=== PATIENT | female | born 1985 | race African-American/Black ===

== ENCOUNTER 2016-12-24 14:38 | Emergency (ER) | payer MEDICAID, OTHER ==
[2016-12-24 14:46] VITALS: BP 135/75; RESP 18; TEMP 98.4
[2016-12-24] MEDS ORDERED: IPRATROPIUM-ALBUTEROL 3 ML NEB INHALATION STA (14:53)
--- NOTE | 2016-12-24 15:11 | ED ---
URI HPI - General Chief Complaint: Upper Respiratory Infection Stated Complaint: cough/congestion Time Seen by Provider: 12/24/16 14:47 Source: patient Mode of arrival: ambulatory Limitations: no limitations - History of Present Illness Initial Comments: 31-year-old female patient presents to emergency department today for evaluation of cough and nasal congestion. Patient states that she developed sore throat with nasal congestion approximately 4 days ago. She states she thought it was her ALLERGIES so she did take some ALLERGY medication which did not improve symptoms. Patient states that now she has developed a cough. She states occasionally she does have sputum production however she is unsure what color it is. She states that her chest feels tight and like she is having difficulty breathing. She states she has noted some wheezing. Patient states she hasn't checked her temperature however has felt chilled and feverish. She denies any rash. Patient denies any recent chest pain, abdominal pain, nausea, vomiting, diarrhea, constipation, back pain, numbness, tingling, headache, visual changes, hematuria, dysuria, urinary frequency, urinary urgency, or any other complaints. She states she is an occasional smoker. - Related Data Home Medications Medication Instructions Recorded Confirmed Ibuprofen [Motrin] 600 mg PO Q8HR PRN 12/14/14 12/14/14 Previous Rx's Medication Instructions Recorded Azithromycin [Zithromax Z-pack] 0 mg PO DIRECTED #6 tab 12/14/14 Albuterol Sulfate [Proair Hfa] 1 - 2 puff INHALATION Q6HR PRN #1 12/24/16 inhaler guaiFENesin-DM 600/30MG [Mucinex 1 each PO Q12HR #10 tab.er.12h 12/24/16 Dm] Allergies Allergy/AdvReac Type Severity Reaction Status Date / Time latex Allergy Rash/Hives Verified 12/24/16 14:44 Review of Systems ROS Statement: Those systems with pertinent positive or pertinent negative responses have been documented in the HPI. ROS Other: All systems not noted in ROS Statement are negative. Past Medical History Additional Past Medical History / Comment(s): arms broken, hypoglycemic, anemia History of Any Multi-Drug Resistant Organisms: None Reported Past Surgical History: Joint Replacement, Orthopedic Surgery Additional Past Surgical History / Comment(s): arms, legs Past Psychological History: No Psychological Hx Reported Smoking Status: Current some day smoker Past Alcohol Use History: Occasional Past Drug Use History: None Reported General Exam Limitations: no limitations General appearance: alert, in no apparent distress, other (Well-developed, well- nourished adult female patient in no acute distress. Vital signs upon presentation temperature 98.4F, pulse 85, respirations 18, blood pressure 135/ 75, pulse ox 100% on room air.) ENT exam: Present: normal exam, mucous membranes moist, TM's normal bilaterally. Absent: normal oropharynx (Oropharyngeal erythema, mild tonsillar hypertrophy. No exudates.) Neck exam: Present: normal inspection. Absent: tenderness, meningismus, lymphadenopathy Respiratory exam: Present: normal lung sounds bilaterally. Absent: respiratory distress, wheezes, rales, rhonchi, stridor Cardiovascular Exam: Present: regular rate, normal rhythm, normal heart sounds. Absent: systolic murmur, diastolic murmur, rubs, gallop, clicks Neurological exam: Present: alert, oriented X3, CN II-XII intact Psychiatric exam: Present: normal affect, normal mood Skin exam: Present: warm, dry, intact, normal color. Absent: rash Course Vital Signs 12/24/16 12/24/16 12/24/16 14:44 15:07 15:22 Temperature 98.4 F Pulse Rate 85 82 84 Respiratory 18 Rate Blood Pressure 135/75 O2 Sat by Pulse 100 Oximetry Medical Decision Making - Medical Decision Making 31-year-old female patient presented for evaluation of cough, congestion, and nasal drainage. Chest x-ray was negative for any acute process. Patient did have improvement of symptoms after breathing treatment. Patient symptoms are consistent with viral upper respiratory infection. Patient be discharged home with a prescription for Mucinex D and pro-air inhaler. She is instructed to follow-up with her primary care physician for recheck in 1-2 days. She is instructed to return here immediately for any new, worsening, or concerning symptoms. Patient verbalizes understanding and agrees with this plan. - Lab Data Lab Results 12/24/16 Range/Units 14:58 Influenza Type A RNA Not Detected (Not Detectd) Influenza Type B (PCR) Not Detected (Not Detectd) - Radiology Data Radiology results: report reviewed, image reviewed Two-view x-ray of the chest was obtained and showed the lungs are clear with no pneumothorax, pleural effusion, or focal pneumonia. Impression by Dr. Sanchez shows no acute process. Disposition Clinical Impression: Upper respiratory infection Disposition: HOME SELF-CARE Condition: Good Instructions: Upper Respiratory Infection (ED) Additional Instructions: Take medications as directed. Increase fluids. Rest. Follow up with your primary care physician for recheck in 1-2 days. Return here immediately for any new, worsening, or concerning symptoms. Prescriptions: Albuterol Sulfate [Proair Hfa] 1 - 2 puff INHALATION Q6HR PRN #1 inhaler PRN Reason: Shortness of breath/wheezing guaiFENesin-DM 600/30MG [Mucinex Dm] 1 each PO Q12HR #10 tab.er.12h Referrals: None,Stated [Primary Care Provider] - 1-2 days Time of Disposition: 15:45
--- NOTE | 2016-12-24 15:40 | XR ---
EXAMINATION TYPE: XR chest 2V DATE OF EXAM: 12/24/2016 COMPARISON: 12/14/2016 TECHNIQUE: PA and lateral views submitted. HISTORY: Cough and congestion FINDINGS: The lungs are clear and there is no pneumothorax, pleural effusion, or focal pneumonia. IMPRESSION: 1. No acute process.
[2016-12-24 16:23] VITALS: PULSE 85
== END 2016-12-24 16:00 | disposition home or self-care (01) ==
LOC: EC 14:38
DX: J06.9 Acute upper respiratory infection, unspecified (principal); F17.200 Nicotine dependence, unspecified, uncomplicated; Z91.040 Latex allergy status
CPT/HCPCS: 71020; 87502; 94640; 99284

== ENCOUNTER 2017-08-18 11:40 | Emergency (ER) | payer MEDICAID ==
[2017-08-18 12:07] VITALS: PULSE 84; RESP 18; TEMP 97.8
--- NOTE | 2017-08-18 13:00 | XR ---
EXAMINATION TYPE: XR shoulder complete LT DATE OF EXAM: 08/18/2017 COMPARISON: NONE HISTORY: 31 year-old female left shoulder pain for one week TECHNIQUE: 3 views FINDINGS: AC joint appears congruent and intact. Subacromial space is preserved. No tendinous or bursal calcifi cations. Small delineation to the greater tuberosity. No acute fracture, subluxation, or dislocation. Visualized left hemithorax is clear. IMPRESSION: No acute osseous abnormality seen.
--- NOTE | 2017-08-18 13:16 | ED ---
General Adult HPI - General Chief complaint: Extremity Injury, Upper Stated complaint: Shoulder pain Time Seen by Provider: 08/18/17 12:13 Source: patient, RN notes reviewed Mode of arrival: ambulatory Limitations: no limitations - History of Present Illness Initial comments: 31-year-old female presents to the emergency department for a chief complaint of left shoulder pain. Patient states this has been going on for about a week. 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 Patient denies remembering any known injury. Patient states she has mild tingling in the left hand. Patient states she has tried Motrin and Tylenol without much relief. Patient states she has not followed up with primary care for this. Patient denies any pain in the neck or back. Patient states she does have some pain above the left shoulder in the area of the trapezius. Patient has no other complaints at this time including shortness of breath, chest pain, abdominal pain, nausea or vomiting, headache, or visual changes. - Related Data Home Medications Medication Instructions Recorded Confirmed Acetaminophen Tab [Tylenol Tab] 1,000 mg PO Q6HR PRN 08/18/17 08/18/17 Previous Rx's Medication Instructions Recorded Cyclobenzaprine [Flexeril] 10 mg PO TID #9 tab 08/18/17 Allergies Allergy/AdvReac Type Severity Reaction Status Date / Time latex Allergy Rash/Hives Verified 08/18/17 12:12 Review of Systems ROS Statement: Those systems with pertinent positive or pertinent negative responses have been documented in the HPI. ROS Other: All systems not noted in ROS Statement are negative. Past Medical History Additional Past Medical History / Comment(s): arms broken, hypoglycemic, anemia leg fracture History of Any Multi-Drug Resistant Organisms: None Reported Past Surgical History: Orthopedic Surgery Additional Past Surgical History / Comment(s): arms, legs Past Psychological History: No Psychological Hx Reported Smoking Status: Current some day smoker Past Alcohol Use History: Occasional Past Drug Use History: None Reported General Exam Limitations: no limitations General appearance: alert, in no apparent distress Neck exam: Present: normal inspection, full ROM. Absent: tenderness, meningismus, lymphadenopathy Respiratory exam: Present: normal lung sounds bilaterally. Absent: respiratory distress, wheezes, rales, rhonchi, stridor Cardiovascular Exam: Present: regular rate, normal rhythm, normal heart sounds. Absent: systolic murmur, diastolic murmur, rubs, gallop, clicks Extremities exam: Present: tenderness (Mild tenderness to the trapezius above the left shoulder.), normal capillary refill (Refill less than 2 seconds and radial pulse 2+ in upper extremities bilaterally.), other (Sensation intact in the left upper extremity.). Absent: full ROM (Patient has about 90 of flexion and abduction. About 30 extension in the left shoulder. Facility Supervisor strength 5 out of 5 in upper extremities bilaterally. ), joint swelling (No swelling or ecchymosis noted of the left shoulder.) Course Vital Signs 08/18/17 12:04 Temperature 97.8 F Pulse Rate 84 Respiratory 18 Rate Blood Pressure 145/80 O2 Sat by Pulse 100 Oximetry Medical Decision Making - Medical Decision Making 31-year-old female presents the emergency department for a chief complaint of left shoulder pain times one week. 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 Patient states she has pain above the left shoulder at the area of trapezius. Patient denies pain in the neck or back. Patient denies any headaches. On exam neurovascular intact in the left upper extremity. Patient has about 90 flexion and abduction and about 30 extension. Patient also has some tenderness above the left shoulder at the area of the trapezius. X-ray demonstrates no acute fractures or dislocations of the shoulder. Patient will be given a prescription for Flexeril. She will follow up outpatient with either orthopedics or primary care. She was given a sling for comfort and educated on doing range of motion exercises every couple hours while using the sling in the left shoulder. Patient is to return if she has any worsening symptoms or numbness in the left hand. Otherwise she will follow-up. Disposition Clinical Impression: Shoulder pain, left Disposition: HOME SELF-CARE Condition: Good Instructions: Shoulder Pain (ED) Additional Instructions: Please take Motrin and Tylenol for pain. Please take muscle relaxer as directed. Use sling as needed and remember to do range of motion exercises in the left shoulder as we discussed. Return to the emergency department if you have any worsening symptoms. Otherwise follow-up with orthopedics or primary care in 1-2 days. Prescriptions: Cyclobenzaprine [Flexeril] 10 mg PO TID #9 tab Is patient prescribed a controlled substance at d/c from ED?: No Referrals: Corey Jacobson DO [STAFF PHYSICIAN] - 1-2 days Osman Goncalves DO [Doctor of Osteopathic Medicine] - 1-2 days Time of Disposition: 13:14
[2017-08-18 13:22] VITALS: BP 124/76
== END 2017-08-18 13:22 | disposition home or self-care (01) ==
LOC: EC 11:40
DX: M25.512 Pain in left shoulder (principal); R20.2 Paresthesia of skin; F17.200 Nicotine dependence, unspecified, uncomplicated; Z87.828 Personal history of other (healed) physical injury and trauma; Z91.040 Latex allergy status
CPT/HCPCS: 99283

== ENCOUNTER 2017-11-09 16:35 | Emergency (ER) | payer MEDICAID, OTHER ==
[2017-11-09 17:00] VITALS: BP 124/76; PULSE 80; RESP 16; TEMP 98.2
[2017-11-09] MEDS ORDERED: PROPARACAINE 0.5% OPHTH DROPS 15 ML BTL LEFT EYE STA (17:17)
--- NOTE | 2017-11-09 17:34 | ED ---
ENT HPI - General Chief complaint: ENT Stated complaint: [facility] - CHEMICAL EXPOSURE Time Seen by Provider: 11/09/17 17:01 Source: patient, RN notes reviewed Mode of arrival: ambulatory Limitations: no limitations - History of Present Illness Initial comments: This a 32-year-old female with past medical history of anemia presents today for chief complaint of chemical in left eye. Pt states that around 4:30 she was at work here at [employer] using a cleaning mixture she is not sure of the name. When she was cleaning a tray, she swiped across the cup simon to clean it when the chemical she was using splashed into her left eye. She denies seeing any blood in the tray. Pt admitted to burning in the left eye. Pt called collin, who irrigated her eye with 1 L of normal saline and sent her to the ER for further evaluation. Upon arrival pt pH was tested using pH strips which was ~7.3 OD, OS, OU. Pt VA was obtained revealing 20/25 OD amd 20/30 OS. Pt admitted to some watering and blurring of the left eye. Denied photophobia, conjunctival injection or loss of vision. Pt VS stable upon arrival. Patient denies any recent fever, chills, shortness of breath, chest pain, back pain, abdominal pain, nausea or vomiting, numbness or tingling, dysuria or hematuria, constipation or diarrhea, headaches, or any other complaints. - Related Data Home Medications Medication Instructions Recorded Confirmed Acetaminophen Tab [Tylenol Tab] 1,000 mg PO Q6HR PRN 08/18/17 08/18/17 Previous Rx's Medication Instructions Recorded Cyclobenzaprine [Flexeril] 10 mg PO TID #9 tab 08/18/17 Allergies Allergy/AdvReac Type Severity Reaction Status Date / Time latex Allergy Rash/Hives Verified 11/09/17 17:00 Review of Systems ROS Statement: Those systems with pertinent positive or pertinent negative responses have been documented in the HPI. ROS Other: All systems not noted in ROS Statement are negative. Constitutional: Denies: fever, chills Eyes: Reports: eye pain, vision change ENT: Denies: ear pain Respiratory: Denies: as per HPI, cough, dyspnea Cardiovascular: Denies: chest pain, palpitations Endocrine: Denies: fatigue Gastrointestinal: Denies: abdominal pain, nausea, vomiting Genitourinary: Denies: urgency, dysuria, frequency, hematuria, discharge Musculoskeletal: Denies: as per HPI Skin: Denies: rash, lesions, change in color Neurological: Denies: headache, weakness, numbness, paresthesias, confusion Past Medical History Past Medical History: No Reported History Additional Past Medical History / Comment(s): arms broken, hypoglycemic, anemia leg fracture History of Any Multi-Drug Resistant Organisms: None Reported Past Surgical History: Orthopedic Surgery Additional Past Surgical History / Comment(s): arms, legs Past Psychological History: No Psychological Hx Reported Smoking Status: Current some day smoker Past Alcohol Use History: Occasional Past Drug Use History: None Reported General Exam - General Exam Comments Initial Comments: General: The patient is awake and alert, in no distress, and does not appear acutely ill. Eye: No lesions, rashes or pack surrounding eye or eyelids. +3mm pupils are equal, round and reactive to light, extra-ocular movements are intact. No APD. No opacities of cornea seen on slit lamp. No nystagmus. There is normal conjunctiva bilaterally. No signs of icterus. pH 7.3 eyes b/l. IOP 12 OU. Fluorescence exam revealed no areas of uptake, no corneal defect or opacities noted. Pt VA 20/30OS 20/25 OD. Ears, nose, mouth and throat: There are moist mucous membranes and no oral lesions. Neck: The neck is supple, there is no tenderness or JVD. Cardiovascular: There is a regular rate and rhythm. No murmur, rub or gallop is appreciated. Musculoskeletal: Normal ROM, no tenderness. Strength 5/5. Sensation intact. Pulses equal bilaterally 2+. Neurological: A&O x 3. CN II-XII intact, There are no obvious motor or sensory deficits. Coordination appears grossly intact. Speech is normal. Skin: Skin is warm and dry and no rashes or lesions are noted. Psychiatric: Cooperative, appropriate mood & affect, normal judgment. Limitations: no limitations Course Vital Signs 11/09/17 16:57 Temperature 98.2 F Pulse Rate 80 Respiratory 16 Rate Blood Pressure 124/76 O2 Sat by Pulse 99 Oximetry Medical Decision Making - Medical Decision Making Eye exam unremarkable, no evidence of chemical burn, pH of eyes b/l equal at 7.3. Pt eye was irrigated with 1L of sterile water after administration of proparacaine. At this time we have low suspicion of chemical burn to left eye. Pt was told to f/u in 1-2 days with ophthalmology for additional evaluation. Pt agreed. Pt was discharged in stable condition after case was discussed with Dr. Rosario in detail. Disposition Clinical Impression: Chemical exposure of eye Narrative: left eye Disposition: HOME SELF-CARE Condition: Good Instructions: Chemical Eye Pack (ED) Additional Instructions: Please use over the counter eye lubricant as discussed. Please follow-up with family doctor or ophthalmology in the next 2 days of symptoms have not improved. Please return to emergency room if the symptoms increase or worsen or for any other concerns. Is patient prescribed a controlled substance at d/c from ED?: No Referrals: None,Stated [Primary Care Provider] - 1-2 days Jatin Ospina MD [STAFF PHYSICIAN] - 1-2 days Time of Disposition: 17:34
== END 2017-11-09 18:20 | disposition home or self-care (01) ==
LOC: EC 16:35
DX: Z77.098 Contact with and (suspected) exposure to other hazardous, chiefly nonmedicinal, chemicals (principal); F17.200 Nicotine dependence, unspecified, uncomplicated; Z91.040 Latex allergy status
CPT/HCPCS: 99283

== ENCOUNTER 2018-03-01 13:59 | Emergency (ER) | payer MEDICAID, OTHER ==
[2018-03-01 14:06] VITALS: PULSE 85; RESP 18; TEMP 97.7
[2018-03-01] MEDS ORDERED: SODIUM CHLORIDE 0.9% 500 ML 500 ML IV STA (14:49)
[2018-03-01] MEDS ORDERED: SODIUM CHLORIDE 0.9% 1,000 ML IV STA (14:49)
--- NOTE | 2018-03-01 14:52 | ED ---
General Adult HPI - General Chief complaint: Chest Pain Stated complaint: chest pain Time Seen by Provider: 03/01/18 14:30 Source: patient, RN notes reviewed, old records reviewed Mode of arrival: ambulatory Limitations: no limitations - History of Present Illness Initial comments: Patient is a 32-year-old -Citizen Of The [place] female who presents emergency department today with chief complaint of left-sided chest pain. She reports that radiates from her sternum, around her breast and towards her back. Patient states the symptoms started on Thursday. She reports it seems to be worse with certain movements and when she takes a deep breath. Patient reports that she's had no significant coughing, fevers chills or wheezing. She denies any acid reflux flex-like pain and denies abdominal pain. She does report there is a slight chance of . 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 She reports that she didn't know heavy lifting or any other physical activity that seems out of the normal for her for her to have this pain. She is an occasional smoker. - Related Data Home Medications Medication Instructions Recorded Confirmed Naproxen Sodium [Aleve] 220 mg PO DAILY PRN 03/01/18 03/01/18 Previous Rx's Medication Instructions Recorded Ibuprofen 600 mg PO TID #20 tablet 03/01/18 methylPREDNISolone Dose Pack 4 mg PO DIRECTED #21 package 03/01/18 [Medrol Dose Pack] Allergies Allergy/AdvReac Type Severity Reaction Status Date / Time latex Allergy Rash/Hives Verified 03/01/18 14:15 Review of Systems ROS Statement: Those systems with pertinent positive or pertinent negative responses have been documented in the HPI. ROS Other: All systems not noted in ROS Statement are negative. Past Medical History Past Medical History: No Reported History Additional Past Medical History / Comment(s): arms broken, hypoglycemic, anemia leg fracture History of Any Multi-Drug Resistant Organisms: None Reported Past Surgical History: Orthopedic Surgery Additional Past Surgical History / Comment(s): arms, legs Past Psychological History: No Psychological Hx Reported Smoking Status: Current some day smoker Past Alcohol Use History: Occasional Past Drug Use History: None Reported General Exam - General Exam Comments Initial Comments: 32-year-old female. Alert and oriented. Patient appears in no acute distress. Limitations: no limitations General appearance: alert, in no apparent distress Head exam: Present: atraumatic, normocephalic, normal inspection Eye exam: Present: normal appearance, PERRL, EOMI. Absent: scleral icterus, conjunctival injection, periorbital swelling ENT exam: Present: normal exam, mucous membranes moist Neck exam: Present: normal inspection. Absent: tenderness, meningismus, lymphadenopathy Respiratory exam: Present: normal lung sounds bilaterally, other (Patient has some tenderness over the sternum, and around the left lower ribs.). Absent: respiratory distress, wheezes, rales, rhonchi, stridor Cardiovascular Exam: Present: regular rate, normal rhythm, normal heart sounds. Absent: systolic murmur, diastolic murmur, rubs, gallop, clicks GI/Abdominal exam: Present: soft, normal bowel sounds. Absent: distended, tenderness, guarding, rebound, rigid Extremities exam: Present: normal inspection, full ROM, normal capillary refill. Absent: tenderness, pedal edema, joint swelling, calf tenderness Back exam: Present: normal inspection Neurological exam: Present: alert, oriented X3, CN II-XII intact Psychiatric exam: Present: normal affect, normal mood Course Vital Signs 03/01/18 03/01/18 14:02 17:58 Temperature 97.7 F 97.7 F Pulse Rate 85 85 Respiratory 18 18 Rate Blood Pressure 125/85 126/86 O2 Sat by Pulse 100 97 Oximetry EKG Findings - EKG Comments: EKG Findings:: EKG performed shows normal sinus rhythm normal EKG. Gen. rate 75 bpm. Verbal 172 ms. QRS duration is 86 ms. QT QTc is 370/413 ms. No evidence of ST elevation or T-wave inversion. Medical Decision Making - Medical Decision Making Patient is a 32-year-old -Citizen Of [place] female who presents emergency department today with chief complaint of left-sided chest pain. She reports that radiates from her sternum, around her breast and towards her back. Patient states the symptoms started on Thursday. Patient has normal ekg, normal lab work. Normal CXR. She has tenderness over sternum. Discussed likely costochondritis. Patient will be dischargd with close follow up with PCP. - Lab Data Result diagrams: 03/01/18 15:19 03/01/18 15:19 Lab Results 03/01/18 03/01/18 03/01/18 Range/Units 15:19 15:19 15:19 WBC 4.9 (3.8-10.6) k/uL RBC 5.35 (3.80-5.40) m/uL Hgb 12.1 (11.4-16.0) gm/dL Hct 38.3 (34.0-46.0) % MCV 71.5 L (80.0-100.0) fL MCH 22.6 L (25.0-35.0) pg MCHC 31.6 (31.0-37.0) g/dL RDW 21.3 H (11.5-15.5) % Plt Count 246 (150-450) k/uL Neutrophils % 56 % Lymphocytes % 33 % Monocytes % 8 % Eosinophils % 1 % Basophils % 0 % Neutrophils # 2.7 (1.3-7.7) k/uL Lymphocytes # 1.6 (1.0-4.8) k/uL Monocytes # 0.4 (0-1.0) k/uL Eosinophils # 0.1 (0-0.7) k/uL Basophils # 0.0 (0-0.2) k/uL Manual Slide Review Performed Polychromasia Present Hypochromasia Slight Poikilocytosis (manual Present Anisocytosis Moderate Microcytosis Marked Target Cells Present Ovalocytes Present PT (9.0-12.0) sec INR (<1.2) APTT (22.0-30.0) sec Sodium 139 (137-145) mmol/L Potassium 4.3 (3.5-5.1) mmol/L Chloride 104 (98-107) mmol/L Carbon Dioxide 27 (22-30) mmol/L Anion Gap 8 mmol/L BUN 16 (7-17) mg/dL Creatinine 0.55 (0.52-1.04) mg/dL Est GFR (CKD-EPI)AfAm >90 (>60 ml/min/1.73 sqM) Est GFR (CKD-EPI)NonAf >90 (>60 ml/min/1.73 sqM) Glucose 79 (74-99) mg/dL Calcium 9.2 (8.4-10.2) mg/dL Magnesium 1.7 (1.6-2.3) mg/dL Total Bilirubin 0.6 (0.2-1.3) mg/dL AST 23 (14-36) U/L ALT 28 (9-52) U/L Alkaline Phosphatase 69 (38-126) U/L Total Creatine Kinase 82 (30-135) U/L CK-MB (CK-2) 0.3 (0.0-2.4) ng/mL CK-MB (CK-2) Rel Index 0.4 Troponin I <0.012 (0.000-0.034) ng/mL Total Protein 7.3 (6.3-8.2) g/dL Albumin 4.0 (3.5-5.0) g/dL Urine Color Urine Appearance (Clear) Urine pH (5.0-8.0) Ur Specific [place] (1.001-1.035) Urine Protein (Negative) Urine Glucose (UA) (Negative) Urine Ketones (Negative) Urine Blood (Negative) Urine Nitrite (Negative) Urine Bilirubin (Negative) Urine Urobilinogen (<2.0) mg/dL Ur Leukocyte Esterase (Negative) Urine RBC (0-5) /hpf Urine WBC (0-5) /hpf Ur Squamous Epith Cells (0-4) /hpf Urine Mucus (None) /hpf Urine HCG, Qual (Not Detectd) 03/01/18 03/01/18 03/01/18 Range/Units 15:19 15:50 15:50 WBC (3.8-10.6) k/uL RBC (3.80-5.40) m/uL Hgb (11.4-16.0) gm/dL Hct (34.0-46.0) % MCV (80.0-100.0) fL MCH (25.0-35.0) pg MCHC (31.0-37.0) g/dL RDW (11.5-15.5) % Plt Count (150-450) k/uL Neutrophils % % Lymphocytes % % Monocytes % % Eosinophils % % Basophils % % Neutrophils # (1.3-7.7) k/uL Lymphocytes # (1.0-4.8) k/uL Monocytes # (0-1.0) k/uL Eosinophils # (0-0.7) k/uL Basophils # (0-0.2) k/uL Manual Slide Review Polychromasia Hypochromasia Poikilocytosis (manual Anisocytosis Microcytosis Target Cells Ovalocytes PT 10.2 (9.0-12.0) sec INR 1.0 (<1.2) APTT 23.6 (22.0-30.0) sec Sodium (137-145) mmol/L Potassium (3.5-5.1) mmol/L Chloride (98-107) mmol/L Carbon Dioxide (22-30) mmol/L Anion Gap mmol/L BUN (7-17) mg/dL Creatinine (0.52-1.04) mg/dL Est GFR (CKD-EPI)AfAm (>60 ml/min/1.73 sqM) Est GFR (CKD-EPI)NonAf (>60 ml/min/1.73 sqM) Glucose (74-99) mg/dL Calcium (8.4-10.2) mg/dL Magnesium (1.6-2.3) mg/dL Total Bilirubin (0.2-1.3) mg/dL AST (14-36) U/L ALT (9-52) U/L Alkaline Phosphatase (38-126) U/L Total Creatine Kinase (30-135) U/L CK-MB (CK-2) (0.0-2.4) ng/mL CK-MB (CK-2) Rel Index Troponin I (0.000-0.034) ng/mL Total Protein (6.3-8.2) g/dL Albumin (3.5-5.0) g/dL Urine Color Light Yellow Urine Appearance Clear (Clear) Urine pH 7.0 (5.0-8.0) Ur Specific [place] 1.008 (1.001-1.035) Urine Protein Negative (Negative) Urine Glucose (UA) Negative (Negative) Urine Ketones Negative (Negative) Urine Blood Negative (Negative) Urine Nitrite Negative (Negative) Urine Bilirubin Negative (Negative) Urine Urobilinogen <2.0 (<2.0) mg/dL Ur Leukocyte Esterase Small H (Negative) Urine RBC <1 (0-5) /hpf Urine WBC 4 (0-5) /hpf Ur Squamous Epith Cells 4 (0-4) /hpf Urine Mucus Rare H (None) /hpf Urine HCG, Qual Not Detected (Not Detectd) Disposition Clinical Impression: Costochondritis Disposition: HOME SELF-CARE Condition: Good Instructions: Costochondritis (ED) Additional Instructions: Patient has follow-up with primary care provider. Return to the emergency department if any alarming signs or symptoms occur. Prescriptions: Ibuprofen 600 mg PO TID #20 tablet methylPREDNISolone Dose Pack [Medrol Dose Pack] 4 mg PO DIRECTED #21 package Is patient prescribed a controlled substance at d/c from ED?: No Referrals: None,Stated [Primary Care Provider] - 1-2 days Janis Kapadia MD [STAFF PHYSICIAN] - 1-2 days Time of Disposition: 17:47
[2018-03-01] MEDS ORDERED: KETOROLAC 30 MG/ML 1 ML VIAL IVP STA (15:51)
[2018-03-01 16:04] LABS: Partial Thromboplastin Time 23.6 sec (22.0-30.0); Prothrombin Time 10.2 sec (9.0-12.0)
[2018-03-01 16:11] LABS: ALT 28 U/L (9-52); AST 23 U/L (14-36); Alkaline Phosphatase 69 U/L (38-126); Anion Gap 8 mmol/L; Blood Urea Nitrogen 16 mg/dL (7-17); Calcium 9.2 mg/dL (8.4-10.2); Carbon Dioxide 27 mmol/L (22-30); Chloride 104 mmol/L (98-107); Glucose 79 mg/dL (74-99); Magnesium 1.7 mg/dL (1.6-2.3); Potassium 4.3 mmol/L (3.5-5.1); Sodium 139 mmol/L (137-145); Total Bilirubin 0.6 mg/dL (0.2-1.3); Total Protein 7.3 g/dL (6.3-8.2)
[2018-03-01 16:22] LABS: Creatine Kinase 82 U/L (30-135)
[2018-03-01 16:35] LABS: Creatine Kinase MB 0.3 ng/mL (0.0-2.4); Troponin I <0.012 ng/mL (0.000-0.034)
[2018-03-01 16:36] LABS: Anisocytosis Moderate; Basophils % (A) 0 %; Eosinophils # (A) 0.1 k/uL (0-0.7); Eosinophils % (A) 1 %; HCT 38.3 % (34.0-46.0); HGB 12.1 gm/dL (11.4-16.0); Hypochromasia Slight; Lymphocytes # (A) 1.6 k/uL (1.0-4.8); Lymphocytes % (A) 33 %; MCH 22.6 pg (25.0-35.0); MCHC 31.6 g/dL (31.0-37.0); MCV 71.5 fL (80.0-100.0); Mean Platelet Volume 7.4; Microcytosis Marked; Monocytes # (A) 0.4 k/uL (0-1.0); Monocytes % (A) 8 %; Neutrophils # (A) 2.7 k/uL (1.3-7.7); Neutrophils % (A) 56 %; Platelet Count 246 k/uL (150-450); RBC 5.35 m/uL (3.80-5.40); RDW 21.3 % (11.5-15.5); WBC 4.9 k/uL (3.8-10.6)
[2018-03-01 17:01] LABS: Appearance,Urine Clear (Clear); Bilirubin,Urine Negative (Negative); Blood,Urine Negative (Negative); Color,Urine Light Yellow; Glucose,Urine (UA) Negative (Negative); Ketones,Urine Negative (Negative); Leukocyte Esterase,Urine Small (Negative); Mucus,Urine Rare /hpf; Nitrite,Urine Negative (Negative); Protein,Urine Negative (Negative); RBC,Urine <1 /hpf (0-5); Specific Gravity,Urine 1.008 (1.001-1.035); Squamous Epithelial Cell,Urine 4 /hpf (0-4); Urobilinogen,Urine <2.0 mg/dL (<2.0); WBC,Urine 4 /hpf (0-5)
[2018-03-01 17:35] LABS: Poikilocytosis (M) Present; Polychromasia Present; Target Cells Present
[2018-03-01 17:36] LABS: Ovalocytes Present
--- NOTE | 2018-03-01 17:46 | XR ---
EXAMINATION TYPE: XR chest 2V DATE OF EXAM: 03/01/2018 COMPARISON: 12/24/2016 HISTORY: Left side chest pain TECHNIQUE: Frontal and lateral views of the chest are obtained. FINDINGS: Heart and mediastinum are normal. Lungs are clear. Diaphragm is normal. Bony thorax is int act. Pulmonary vascularity is normal. IMPRESSION: Normal chest. No change.
[2018-03-01 18:00] VITALS: BP 126/86
== END 2018-03-01 17:58 | disposition home or self-care (01) ==
LOC: EC 13:59
DX: M94.0 Chondrocostal junction syndrome [Tietze] (principal); F17.200 Nicotine dependence, unspecified, uncomplicated; Z91.040 Latex allergy status
CPT/HCPCS: 36415; 93005; 80053; 82550; 82553; 83735; 84484; 85025; 85610; 85730; 81001; 81025; 71046; 99285; 96374; 96361 ×3; J1885

== ENCOUNTER 2018-05-03 00:13 | Emergency (ER) | payer MEDICAID, OTHER ==
[2018-05-03] MEDS ORDERED: MORPHINE SULFATE 4 MG/ML SYRINGE IV STA (00:55)
[2018-05-03] MEDS ORDERED: SODIUM CHLORIDE 0.9% 500 ML 500 ML IV STA (00:57)
[2018-05-03 01:09] LABS: Anisocytosis Moderate; HGB 11.3 gm/dL (11.4-16.0); Hypochromasia Slight; Mean Platelet Volume 6.2; Microcytosis Marked; Poikilocytosis Slight
[2018-05-03 01:12] LABS: HCT 35.6 % (34.0-46.0); MCH 22.8 pg (25.0-35.0); MCHC 31.9 g/dL (31.0-37.0); MCV 71.5 fL (80.0-100.0); Platelet Count 251 k/uL (150-450); RBC 4.98 m/uL (3.80-5.40); RDW 21.3 % (11.5-15.5); WBC 6.4 k/uL (3.8-10.6)
[2018-05-03 01:21] LABS: ALT 22 U/L (9-52); AST 29 U/L (14-36); Albumin 4.3 g/dL (3.5-5.0); Alkaline Phosphatase 73 U/L (38-126); Amylase 60 U/L (30-110); Anion Gap 8 mmol/L; Blood Urea Nitrogen 22 mg/dL (7-17); Calcium 9.5 mg/dL (8.4-10.2); Carbon Dioxide 24 mmol/L (22-30); Chloride 105 mmol/L (98-107); Glucose 94 mg/dL (74-99); Lipase 57 U/L (23-300); Magnesium 1.9 mg/dL (1.6-2.3); Sodium 137 mmol/L (137-145); Total Bilirubin 0.7 mg/dL (0.2-1.3); Total Protein 7.6 g/dL (6.3-8.2)
[2018-05-03 01:23] LABS: D-Dimer <0.17 mg/L FEU (<0.60); INR 0.9 (<1.2); Partial Thromboplastin Time 23.2 sec (22.0-30.0); Prothrombin Time 10.1 sec (9.0-12.0)
--- NOTE | 2018-05-03 01:27 | XR ---
EXAMINATION TYPE: XR chest 2V DATE OF EXAM: 05/03/2018 COMPARISON: 03/01/2018 HISTORY: Chest pain TECHNIQUE: Frontal and lateral views of the chest are obtained. FINDINGS: Heart and mediastinum are normal. Lungs are clear. Diaphragm is normal. Bony thorax is int act. Pulmonary vascularity is normal. IMPRESSION: Normal chest. No change.
[2018-05-03 01:29] LABS: Creatine Kinase 121 U/L (30-135)
[2018-05-03 01:34] LABS: Potassium 4.5 mmol/L (3.5-5.1)
[2018-05-03 01:36] LABS: Eosinophils # (M) 0.06 k/uL (0-0.7); Lymphocytes # (M) 2.37 k/uL (1.0-4.8); Monocytes # (M) 0.45 k/uL (0-1.0); Neutrophils # (M) 3.52 k/uL (1.3-7.7); Neutrophils % (M) 55 %; Nucleated Red Blood Cells 0 /100 WBC (0-0); Total Cells Counted 100
[2018-05-03 01:37] LABS: RBC Fragments Present
[2018-05-03] MEDS ORDERED: KETOROLAC 30 MG/ML 1 ML VIAL IVP STA (01:37)
[2018-05-03 01:42] LABS: Creatine Kinase MB 0.5 ng/mL (0.0-2.4); Troponin I <0.012 ng/mL (0.000-0.034)
--- NOTE | 2018-05-03 02:19 | ED ---
Chest Pain HPI - General Chief Complaint: Chest Pain Stated Complaint: Chest Pain/SOB/Poss Allergic Reaction Time Seen by Provider: 05/03/18 00:31 Source: patient, family Mode of arrival: ambulatory Limitations: no limitations - History of Present Illness Initial Comments: This patient is a 32-year-old woman presenting with substernal and left chest pain that is been going on since the morning. She noted that it is severe, constant, gets much worse with certain positions or with taking a breath. Patient states it similar to previous episode of pleurisy. She did have some preceding sore throat but denies other upper respiratory symptoms. No anginal symptoms. MD Complaint: chest pain -: hour(s) Onset: during rest Pain Location: substernal Pain Radiation: none Severity: severe Quality: sharp Consistency: constant Improves With: nothing Worsens With: inspiration Treatments Prior to Arrival: none - Related Data On Oral Contraceptives: No Home Medications Medication Instructions Recorded Confirmed Naproxen Sodium [Aleve] 220 mg PO DAILY PRN 03/01/18 03/01/18 Previous Rx's Medication Instructions Recorded Ibuprofen 600 mg PO TID #20 tablet 03/01/18 methylPREDNISolone Dose Pack 4 mg PO DIRECTED #21 package 03/01/18 [Medrol Dose Pack] Ibuprofen 800 mg PO TID #20 tablet 05/03/18 Allergies Allergy/AdvReac Type Severity Reaction Status Date / Time latex Allergy Rash/Hives Verified 03/01/18 14:15 Review of Systems ROS Statement: Those systems with pertinent positive or pertinent negative responses have been documented in the HPI. ROS Other: All systems not noted in ROS Statement are negative. Constitutional: Denies: fever, chills ENT: Reports: throat pain Respiratory: Denies: cough, dyspnea Cardiovascular: Reports: chest pain. Denies: palpitations, dyspnea on exertion , orthopnea, edema Gastrointestinal: Denies: abdominal pain, nausea, vomiting, diarrhea Musculoskeletal: Denies: back pain Skin: Denies: rash Neurological: Denies: headache, weakness, numbness EKG Findings - EKG Results: EKG: interpreted by KATIE, sinus rhythm, normal axis, normal QRS, normal ST/T, no acute changes EKG shows: tachycardia (Rate 105 bpm) Past Medical History Past Medical History: No Reported History Additional Past Medical History / Comment(s): arms broken, hypoglycemic, anemia leg fracture History of Any Multi-Drug Resistant Organisms: None Reported Past Surgical History: Orthopedic Surgery Additional Past Surgical History / Comment(s): arms, legs Past Psychological History: No Psychological Hx Reported Smoking Status: Current some day smoker Past Alcohol Use History: Occasional Past Drug Use History: None Reported General Exam Limitations: no limitations General appearance: alert, in no apparent distress Head exam: Present: atraumatic, normocephalic Eye exam: Present: normal appearance. Absent: scleral icterus, conjunctival injection ENT exam: Present: normal exam Neck exam: Present: normal inspection Respiratory exam: Present: normal lung sounds bilaterally. Absent: respiratory distress, wheezes, rales, rhonchi, stridor Cardiovascular Exam: Present: regular rate, normal rhythm, normal heart sounds. Absent: systolic murmur, diastolic murmur, rubs, gallop GI/Abdominal exam: Present: soft. Absent: distended, tenderness, guarding, rebound, rigid, mass Extremities exam: Present: normal inspection, normal capillary refill. Absent: pedal edema, calf tenderness Back exam: Present: normal inspection. Absent: CVA tenderness (R), CVA tenderness (L) Neurological exam: Present: alert Skin exam: Present: warm, dry, intact, normal color. Absent: rash Course Vital Signs 05/03/18 05/03/18 05/03/18 00:16 01:10 01:43 Temperature 98.8 F Pulse Rate 105 H 82 Pulse Rate [ 110 H Development Administrator ] Respiratory 20 18 Rate Blood Pressure 143/89 132/88 O2 Sat by Pulse 100 100 Oximetry 05/03/18 02:42 Temperature 98.6 F Pulse Rate 83 Pulse Rate [ Development Administrator ] Respiratory 16 Rate Blood Pressure 125/74 O2 Sat by Pulse 100 Oximetry Disposition Clinical Impression: Pleuritis Disposition: HOME SELF-CARE Condition: Good Instructions (If sedation given, give patient instructions): Pleurisy (ED) Prescriptions: Ibuprofen 800 mg PO TID #20 tablet Is patient prescribed a controlled substance at d/c from ED?: No Referrals: None,Stated [Primary Care Provider] - 1-2 days
[2018-05-03 02:43] VITALS: BP 125/74; RESP 16; TEMP 98.6
[2018-05-03 04:16] VITALS: PULSE 110
== END 2018-05-03 02:44 | disposition home or self-care (01) ==
LOC: EC 00:13
DX: R09.1 Pleurisy (principal); F17.200 Nicotine dependence, unspecified, uncomplicated; Z91.040 Latex allergy status
CPT/HCPCS: 36415; 93005; 85379; 80053; 82150; 82550; 82553; 83690; 83735; 84484; 85025; 85610; 85730; 71046; 99285; 96374; 96375; 96361; J2270; J1885

== ENCOUNTER 2018-09-09 16:18 | Emergency (ER) | payer MEDICAID, OTHER ==
[2018-09-09 16:27] VITALS: BP 130/89; PULSE 98; RESP 18; TEMP 98.9
[2018-09-09 18:06] LABS: ALT 13 U/L (9-52); AST 15 U/L (14-36); African American GFR (CKD) >90 (>60 ml/min/1.73 sqM); Alkaline Phosphatase 77 U/L (38-126)
--- NOTE | 2018-09-09 18:09 | ED ---
Recheck HPI - General Chief Complaint: Needlestick/Exposure Stated Complaint: needlestick [facility] Time Seen by Provider: 09/09/18 16:44 Source: patient, RN notes reviewed, old records reviewed Mode of arrival: ambulatory Limitations: no limitations - History of Present Illness Initial Comments: This is a 32-year-old female the ER for evaluation. Patient is presenting for evaluation for needlestick exposure. Patient sent down by accounts payable supervisor that she was cleaning up some trash and was stuck by a needle in her right middle finger. She did have bleeding she did express some blood and she also did wash her head at the time. Patient denies history of communicable disease. Otherwise she has no complaints aside from severe anxiety regarding possibility of HIV MD Complaint: other (Needle stick) -: minutes(s) Returns Today for: request for prescription (Patient requesting treatment for possible HIV prophylaxis) Symptoms Since Prior Visit: no new symptoms Associated Symptoms: none - Related Data Home Medications Medication Instructions Recorded Confirmed Naproxen Sodium [Aleve] 220 mg PO DAILY PRN 03/01/18 03/01/18 Previous Rx's Medication Instructions Recorded Ibuprofen 600 mg PO TID #20 tablet 03/01/18 methylPREDNISolone Dose Pack 4 mg PO DIRECTED #21 package 03/01/18 [Medrol Dose Pack] Ibuprofen 800 mg PO TID #20 tablet 05/03/18 Allergies Allergy/AdvReac Type Severity Reaction Status Date / Time latex Allergy Rash/Hives Verified 03/01/18 14:15 Review of Systems ROS Statement: Those systems with pertinent positive or pertinent negative responses have been documented in the HPI. ROS Other: All systems not noted in ROS Statement are negative. Past Medical History Past Medical History: No Reported History Additional Past Medical History / Comment(s): arms broken, hypoglycemic, anemia leg fracture History of Any Multi-Drug Resistant Organisms: None Reported Past Surgical History: Orthopedic Surgery Additional Past Surgical History / Comment(s): arms, legs Past Psychological History: No Psychological Hx Reported Smoking Status: Current some day smoker Past Alcohol Use History: Occasional Past Drug Use History: None Reported General Exam - General Exam Comments Initial Comments: Bleeding has stopped Limitations: no limitations General appearance: alert, in no apparent distress Head exam: Present: atraumatic, normocephalic, normal inspection Eye exam: Present: normal appearance, PERRL, EOMI. Absent: scleral icterus, conjunctival injection, periorbital swelling ENT exam: Present: normal exam, mucous membranes moist Neck exam: Present: normal inspection. Absent: tenderness, meningismus, lymphadenopathy Respiratory exam: Present: normal lung sounds bilaterally. Absent: respiratory distress, wheezes, rales, rhonchi, stridor Cardiovascular Exam: Present: regular rate, normal rhythm, normal heart sounds. Absent: systolic murmur, diastolic murmur, rubs, gallop, clicks GI/Abdominal exam: Present: soft, normal bowel sounds. Absent: distended, tenderness, guarding, rebound, rigid Extremities exam: Present: normal inspection, full ROM, normal capillary refill. Absent: tenderness, pedal edema, joint swelling, calf tenderness Back exam: Present: normal inspection Neurological exam: Present: alert, oriented X3, CN II-XII intact Psychiatric exam: Present: normal affect, normal mood Skin exam: Present: warm, dry, intact, normal color. Absent: rash Course Vital Signs 09/09/18 16:24 Temperature 98.9 F Pulse Rate 98 Respiratory 18 Rate Blood Pressure 130/89 O2 Sat by Pulse 100 Oximetry Medical Decision Making - Medical Decision Making 82 female the ER with needlestick exposure, patient requesting HIV treatment prophylaxis patient given prophylaxis and will be discharged home - Lab Data Result diagrams: 09/09/18 17:38 09/09/18 17:38 Lab Results 09/09/18 09/09/18 Range/Units 17:38 17:38 WBC 5.7 (3.8-10.6) k/uL RBC 5.16 (3.80-5.40) m/uL Hgb 11.4 (11.4-16.0) gm/dL Hct 37.2 (34.0-46.0) % MCV 72.1 L (80.0-100.0) fL MCH 22.1 L (25.0-35.0) pg MCHC 30.7 L (31.0-37.0) g/dL RDW 21.7 H (11.5-15.5) % Plt Count 238 (150-450) k/uL Neutrophils % 58 % Lymphocytes % 33 % Monocytes % 6 % Eosinophils % 1 % Basophils % 0 % Neutrophils # 3.3 (1.3-7.7) k/uL Lymphocytes # 1.9 (1.0-4.8) k/uL Monocytes # 0.3 (0-1.0) k/uL Eosinophils # 0.1 (0-0.7) k/uL Basophils # 0.0 (0-0.2) k/uL Hypochromasia Moderate Poikilocytosis Slight Anisocytosis Moderate Microcytosis Marked Creatinine 0.66 (0.52-1.04) mg/dL Est GFR (CKD-EPI)AfAm >90 (>60 ml/min/1.73 sqM) Est GFR (CKD-EPI)NonAf >90 (>60 ml/min/1.73 sqM) AST 15 (14-36) U/L ALT 13 (9-52) U/L Alkaline Phosphatase 77 (38-126) U/L Disposition Clinical Impression: Needle stick injury of finger Disposition: HOME SELF-CARE Condition: Good Instructions (If sedation given, give patient instructions): Needle Stick Injuries (ED), Body Substance Exposure (ED) Is patient prescribed a controlled substance at d/c from ED?: No Referrals: None,Stated [Primary Care Provider] - 1-2 days
[2018-09-09 18:24] LABS: Anisocytosis Moderate; Basophils % (A) 0 %; Eosinophils # (A) 0.1 k/uL (0-0.7); Eosinophils % (A) 1 %; HCT 37.2 % (34.0-46.0); HGB 11.4 gm/dL (11.4-16.0); Hypochromasia Moderate; Lymphocytes # (A) 1.9 k/uL (1.0-4.8); Lymphocytes % (A) 33 %; MCH 22.1 pg (25.0-35.0); MCHC 30.7 g/dL (31.0-37.0); MCV 72.1 fL (80.0-100.0); Mean Platelet Volume 6.8; Microcytosis Marked; Monocytes # (A) 0.3 k/uL (0-1.0); Monocytes % (A) 6 %; Neutrophils # (A) 3.3 k/uL (1.3-7.7); Neutrophils % (A) 58 %; Platelet Count 238 k/uL (150-450); Poikilocytosis Slight; RBC 5.16 m/uL (3.80-5.40); RDW 21.7 % (11.5-15.5); WBC 5.7 k/uL (3.8-10.6)
[2018-09-09] MEDS ORDERED: EMTRICITABINE/TENOFOVIR (TDF) 1 EACH, RALTEGRAVIR POTASSIUM 400 MG PO ONE ×2 (18:59)
== END 2018-09-09 19:57 | disposition home or self-care (01) ==
LOC: EC 16:18
DX: S69.91XA Unspecified injury of right wrist, hand and finger(s), initial encounter (principal); F17.200 Nicotine dependence, unspecified, uncomplicated; Z91.040 Latex allergy status; W27.3XXA Contact with needle (sewing), initial encounter; Y93.89 Activity, other specified; Y92.69 Other specified industrial and construction area as the place of occurrence of the external cause; Y99.0 Civilian activity done for income or pay
CPT/HCPCS: 36415; 82565; 84075; 84450; 84460; 85025; 99283

== ENCOUNTER 2019-05-28 21:03 | Emergency (ER) | payer MEDICAID ==
[2019-05-28 21:06] VITALS: BP 128/88
[2019-05-28] MEDS ORDERED: IBUPROFEN 800 MG TAB PO STA (21:18)
[2019-05-28] MEDS ORDERED: ACETAMINOPHEN TAB 500 MG TAB PO STA (21:18)
--- NOTE | 2019-05-28 21:31 | XR ---
EXAMINATION TYPE: XR chest 2V DATE OF EXAM: 05/28/2019 COMPARISON: 05/03/2018 INDICATION: Cough fever congestion TECHNIQUE: Frontal and lateral views of the chest are obtained. FINDINGS: The heart size is normal. The pulmonary vasculature is normal. The lungs are clear. IMPRESSION: 1. No acute pulmonary process.
--- NOTE | 2019-05-28 21:31 | ED ---
General Adult HPI - General Chief complaint: Upper Respiratory Infection Stated complaint: Flu like Sx Time Seen by Provider: 05/28/19 21:07 Source: patient, RN notes reviewed Mode of arrival: ambulatory Limitations: no limitations - History of Present Illness Initial comments: 33-year-old female presents to the emergency department for a chief complaint of fever. Patient states that she has had a fever for the past 3 days. States that she has had body aches and chills. States she has had a cough and sore throat as well. He is also at some congestion. Patient states she took NyQuil about 2 hours prior to arrival. States she took 200 mg of Motrin about 6 hours ago. Patient states she thinks she has the flu.Patient has no other complaints at this time including shortness of breath, chest pain, abdominal pain, nausea or vomiting, headache, or visual changes. - Related Data Home Medications Medication Instructions Recorded Confirmed Naproxen Sodium [Aleve] 220 mg PO DAILY PRN 03/01/18 03/01/18 Previous Rx's Medication Instructions Recorded Ibuprofen 600 mg PO TID #20 tablet 03/01/18 methylPREDNISolone Dose Pack 4 mg PO DIRECTED #21 package 03/01/18 [Medrol Dose Pack] Ibuprofen 800 mg PO TID #20 tablet 05/03/18 Benzonatate [Tessalon Perles] 200 mg PO Q8H PRN #15 capsule 05/28/19 guaiFENesin-DM 600/30MG [Mucinex 1 each PO Q12HR PRN #20 tab.er.12h 05/28/19 Dm] Allergies Allergy/AdvReac Type Severity Reaction Status Date / Time latex Allergy Rash/Hives Verified 05/28/19 21:06 Review of Systems ROS Statement: Those systems with pertinent positive or pertinent negative responses have been documented in the HPI. ROS Other: All systems not noted in ROS Statement are negative. Past Medical History Past Medical History: No Reported History Additional Past Medical History / Comment(s): arms broken, hypoglycemic, anemia leg fracture History of Any Multi-Drug Resistant Organisms: None Reported Past Surgical History: Orthopedic Surgery Additional Past Surgical History / Comment(s): arms, legs Past Psychological History: No Psychological Hx Reported Smoking Status: Current some day smoker Past Alcohol Use History: Occasional Past Drug Use History: None Reported General Exam Limitations: no limitations General appearance: alert, in no apparent distress Head exam: Present: atraumatic, normocephalic, normal inspection Eye exam: Present: normal appearance, PERRL, EOMI. Absent: scleral icterus, conjunctival injection, periorbital swelling ENT exam: Present: normal exam, normal oropharynx (Uvula midline, non- erythematous, no tonsillar exudates noted bilaterally), mucous membranes moist, TM's normal bilaterally, normal external ear exam Neck exam: Present: normal inspection, full ROM. Absent: tenderness, meningismus, lymphadenopathy Respiratory exam: Present: normal lung sounds bilaterally. Absent: respiratory distress, wheezes, rales, rhonchi, stridor Cardiovascular Exam: Present: regular rate, normal rhythm, normal heart sounds. Absent: systolic murmur, diastolic murmur, rubs, gallop, clicks GI/Abdominal exam: Present: soft, normal bowel sounds. Absent: distended, tenderness, guarding, rebound, rigid Neurological exam: Present: alert Psychiatric exam: Present: normal affect, normal mood Course Vital Signs 05/28/19 21:04 Temperature 102.8 F H Pulse Rate 121 H Respiratory 20 Rate Blood Pressure 128/88 O2 Sat by Pulse 100 Oximetry Medical Decision Making - Medical Decision Making Patient presents with a fever of 102.8 and reflexive tachycardia of 121. Patient was given Motrin and Tylenol patient presents with symptoms of cough congestion sore throat and body aches. Physical exam is unremarkable although patient is noted to have a dry cough. Chest x-ray shows no acute pulmonary process. Influenza B is detected. Patient is outside of the window for Tamiflu given symptoms have been ongoing for 3 days. However I did discuss Motrin and Tylenol for fever alternating every three hours. Patient also requesting cough medicine and will be given Tessalon Perles and Mucinex. Patient denies chance of . She will follow up with primary care in 1-2 days. She will return if she has any worsening symptoms. After antipyretics temperature did improve to 102.1 and pulse rate improved to 102. - Lab Data Lab Results 05/28/19 Range/Units 21:20 Influenza Type A RNA Not Detected (Not Detectd) Influenza Type B (PCR) Detected H (Not Detectd) Disposition Clinical Impression: Influenza B Disposition: HOME SELF-CARE Condition: Good Instructions (If sedation given, give patient instructions): Influenza (ED) Additional Instructions: Please take Motrin and Tylenol alternating every 3 hours as needed for fever. You may take 600-800 mg of Motrin at a time and 500-1000 mg of Tylenol at a time. Drink plenty of fluids. Follow-up with primary care in 1-2 days. Return to the emergency department if you have any worsening symptoms. Prescriptions: guaiFENesin-DM 600/30MG [Mucinex Dm] 1 each PO Q12HR PRN #20 tab.er.12h PRN Reason: Cough Benzonatate [Tessalon Perles] 200 mg PO Q8H PRN #15 capsule PRN Reason: Cough Is patient prescribed a controlled substance at d/c from ED?: No Referrals: Richmond Fletcher MD [REFERRING] - 1-2 days Time of Disposition: 22:40
[2019-05-28 23:11] VITALS: PULSE 87; RESP 16; TEMP 100
== END 2019-05-28 23:12 | disposition home or self-care (01) ==
LOC: EC 21:03
DX: J10.1 Influenza due to other identified influenza virus with other respiratory manifestations (principal); F17.200 Nicotine dependence, unspecified, uncomplicated; Z91.040 Latex allergy status
CPT/HCPCS: 71046; 87502; 99283

== ENCOUNTER 2019-06-22 01:10 | Emergency (ER) | payer MEDICAID ==
[2019-06-22] MEDS ORDERED: LIDOCAINE VISCOUS 2% 15 ML CUP MUCOUS MEM STA (01:36)
[2019-06-22] MEDS ORDERED: ACETAMINOPHEN TAB 325 MG TAB PO STA (01:36)
--- NOTE | 2019-06-22 02:14 | ED ---
URI HPI - General Chief Complaint: Upper Respiratory Infection Stated Complaint: sore throat,cough Time Seen by Provider: 06/22/19 01:18 Source: patient Mode of arrival: ambulatory Limitations: no limitations - History of Present Illness MD Complaint: sore throat Onset/Timin -: days(s) Severity: moderate Quality: burning Consistency: constant Improves With: nothing Worsens With: other (Swallowing) Associated Symptoms: fever, cough Treatments Prior to Arrival: none - Related Data Home Medications Medication Instructions Recorded Confirmed Naproxen Sodium [Aleve] 220 mg PO DAILY PRN 03/01/18 03/01/18 Previous Rx's Medication Instructions Recorded Ibuprofen 600 mg PO TID #20 tablet 03/01/18 methylPREDNISolone Dose Pack 4 mg PO DIRECTED #21 package 03/01/18 [Medrol Dose Pack] Ibuprofen 800 mg PO TID #20 tablet 05/03/18 Benzonatate [Tessalon Perles] 200 mg PO Q8H PRN #15 capsule 05/28/19 guaiFENesin [Mucinex] 600 mg PO Q12HR PRN #20 tablet.er 05/28/19 Lidocaine Viscous [Xylocaine 5 ml PO Q3HR PRN #100 ml 06/22/19 Viscous 2%] Allergies Allergy/AdvReac Type Severity Reaction Status Date / Time latex Allergy Rash/Hives Verified 05/28/19 21:06 Review of Systems ROS Statement: Those systems with pertinent positive or pertinent negative responses have been documented in the HPI. ROS Other: All systems not noted in ROS Statement are negative. Constitutional: Reports: fever. Denies: chills ENT: Reports: throat pain. Denies: ear pain Respiratory: Reports: cough. Denies: dyspnea, wheezes, hemoptysis Cardiovascular: Denies: chest pain Gastrointestinal: Denies: abdominal pain, vomiting, diarrhea Genitourinary: Denies: dysuria Skin: Denies: rash Neurological: Denies: headache Past Medical History Past Medical History: No Reported History Additional Past Medical History / Comment(s): arms broken, hypoglycemic, anemia leg fracture History of Any Multi-Drug Resistant Organisms: None Reported Past Surgical History: Orthopedic Surgery Additional Past Surgical History / Comment(s): arms, legs Past Psychological History: No Psychological Hx Reported Smoking Status: Current some day smoker Past Alcohol Use History: Occasional Past Drug Use History: None Reported General Exam Limitations: no limitations General appearance: alert, in no apparent distress Head exam: Present: atraumatic, normocephalic Eye exam: Present: normal appearance. Absent: scleral icterus, conjunctival injection ENT exam: Present: mucous membranes moist, other (There is injection of the pharynx. Uvula is midline with no edema.) Neck exam: Present: normal inspection, full ROM, lymphadenopathy (Bilateral anterior cervical adenopathy). Absent: tenderness, meningismus Respiratory exam: Present: normal lung sounds bilaterally. Absent: respiratory distress, wheezes, rales, rhonchi, stridor Cardiovascular Exam: Present: normal rhythm, tachycardia (Rate 108 at my exam), normal heart sounds. Absent: systolic murmur, diastolic murmur, rubs, gallop GI/Abdominal exam: Present: soft. Absent: distended, tenderness, guarding, rebound, rigid, organomegaly Extremities exam: Present: normal inspection, normal capillary refill. Absent: pedal edema, calf tenderness Back exam: Present: normal inspection. Absent: CVA tenderness (R), CVA tenderness (L) Neurological exam: Present: alert Skin exam: Present: warm, dry, intact, normal color. Absent: rash Course Vital Signs 06/22/19 06/22/19 06/22/19 01:12 01:41 02:32 Temperature 100.6 F H 98.8 F Pulse Rate 125 H 111 H Respiratory 18 18 20 Rate Blood Pressure 151/91 134/84 O2 Sat by Pulse 100 100 Oximetry Medical Decision Making - Medical Decision Making Patient is 33-year-old woman with fever, pharyngitis and upper respiratory symptoms. The rapid strep is negative, culture is pending. The patient does not have signs or symptoms of developing abscess. Discussed appropriate further care and follow-up. We also discussed possibility of colon infection, the appropriate self-isolation and return parameters. - Lab Data Lab Results 06/22/19 Range/Units 01:35 Group A Strep Rapid Negative (Negative) Disposition Clinical Impression: Viral infection Disposition: HOME SELF-CARE Condition: Good Instructions (If sedation given, give patient instructions): Viral Syndrome (ED) Prescriptions: Lidocaine Viscous [Xylocaine Viscous 2%] 5 ml PO Q3HR PRN #100 ml PRN Reason: Sore Throat Is patient prescribed a controlled substance at d/c from ED?: No Referrals: None,Stated [Primary Care Provider] - 1-2 days
[2019-06-22 02:37] VITALS: BP 134/84; PULSE 111; RESP 20; TEMP 98.8
== END 2019-06-22 02:37 | disposition home or self-care (01) ==
LOC: EC 01:10
DX: B34.9 Viral infection, unspecified (principal); F17.200 Nicotine dependence, unspecified, uncomplicated; Z91.040 Latex allergy status
CPT/HCPCS: 87081; 87430; 99283

== ENCOUNTER 2020-05-01 01:16 | Emergency (ER) | payer MEDICAID ==
[2020-05-01] MEDS ORDERED: SODIUM CHLORIDE 0.9% 1,000 ML IV STA (01:44)
--- NOTE | 2020-05-01 01:45 | ED ---
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 Patient herself has no fevers complaining of some chest pain and x-ray noticed today that she couldn't taste MD Complaint: chest pain, other (Loss of taste) -: days(s) Onset: other (Currently no chest pain) Pain Radiation: none Severity: mild Quality: tightness Consistency: constant Improves With: nothing Worsens With: nothing Context: recent illness (Patient does have coronavirus exposure) Anginal Symptoms: nausea, other (Patient did have diarrhea) Other Symptoms: acid taste in mouth (Loss of taste) Treatments Prior to Arrival: none - Related Data Home Medications Medication Instructions Recorded Confirmed Naproxen Sodium [Aleve] 220 mg PO DAILY PRN 03/01/18 03/01/18 Previous Rx's Medication Instructions Recorded Ibuprofen 600 mg PO TID #20 tablet 03/01/18 methylPREDNISolone Dose Pack 4 mg PO DIRECTED #21 package 03/01/18 [Medrol Dose Pack] Ibuprofen 800 mg PO TID #20 tablet 05/03/18 Benzonatate [Tessalon Perles] 200 mg PO Q8H PRN #15 capsule 05/28/19 guaiFENesin [Mucinex] 600 mg PO Q12HR PRN #20 tablet.er 05/28/19 Lidocaine Viscous [Xylocaine 5 ml PO Q3HR PRN #100 ml 06/22/19 Viscous 2%] Allergies Allergy/AdvReac Type Severity Reaction Status Date / Time latex Allergy Rash/Hives Verified 05/01/20 01:23 Review of Systems ROS Statement: Those systems with pertinent positive or pertinent negative responses have been documented in the HPI. ROS Other: All systems not noted in ROS Statement are negative. EKG Findings - EKG Comments: EKG Findings:: He is sinus rhythm 96 VT 152 QRS 86 QTc 460 Past Medical History Past Medical History: No Reported History Additional Past Medical History / Comment(s): arms broken, hypoglycemic, anemia leg fracture History of Any Multi-Drug Resistant Organisms: None Reported Past Surgical History: Orthopedic Surgery Additional Past Surgical History / Comment(s): arms, legs Past Psychological History: No Psychological Hx Reported Smoking Status: Light tobacco smoker Past Alcohol Use History: Occasional Past Drug Use History: None Reported General Exam Limitations: no limitations General appearance: alert, in no apparent distress Head exam: Present: atraumatic, normocephalic, normal inspection Eye exam: Present: normal appearance, PERRL, EOMI. Absent: scleral icterus, conjunctival injection, periorbital swelling ENT exam: Present: normal exam, mucous membranes moist Neck exam: Present: normal inspection. Absent: tenderness, meningismus, lymphadenopathy Respiratory exam: Present: normal lung sounds bilaterally. Absent: respiratory distress, wheezes, rales, rhonchi, stridor Cardiovascular Exam: Present: normal rhythm, tachycardia, normal heart sounds. Absent: systolic murmur, diastolic murmur, rubs, gallop, clicks GI/Abdominal exam: Present: soft, normal bowel sounds. Absent: distended, tenderness, guarding, rebound, rigid Extremities exam: Present: normal inspection, full ROM, normal capillary refill. Absent: tenderness, pedal edema, joint swelling, calf tenderness Back exam: Present: normal inspection Neurological exam: Present: alert, oriented X3, CN II-XII intact Psychiatric exam: Present: normal affect, normal mood Skin exam: Present: warm, dry, intact, normal color. Absent: rash Course Vital Signs 05/01/20 05/01/20 01:19 02:55 Temperature 99.3 F 98.1 F Pulse Rate 111 H 81 Respiratory 20 18 Rate Blood Pressure 150/96 135/82 O2 Sat by Pulse 100 100 Oximetry - Reevaluation(s) Reevaluation #1: 05/01/20 03:38 Medical record is reviewed Reevaluation #2: 05/01/20 03:39 Patient remains without fever here in the ER is no complaints of shortness of breath. Reevaluation #3: 05/01/20 03:39 Patient is informed of results here in the ER questions answered. Chest Pain MDM - MDM 34-year-old female positive chest pain with coming in for possible coronavirus and coronavirus exposure. Patient has positive coronavirus x-ray labwork are normal patient can be discharged home in no distress Disposition Clinical Impression: Coronavirus infection Disposition: HOME SELF-CARE Condition: Good Instructions (If sedation given, give patient instructions): Coronavirus Disease 2019 (COVID-19) Is patient prescribed a controlled substance at d/c from ED?: No Referrals: None,Stated [Primary Care Provider] - 1-2 days
[2020-05-01 02:17] LABS: Anisocytosis Moderate; Basophils # (A) 0.1 k/uL (0-0.2); Basophils % (A) 1 %; Eosinophils % (A) 1 %; HCT 36.6 % (34.0-46.0); HGB 11.7 gm/dL (11.4-16.0); Hypochromasia Slight; Lymphocytes # (A) 1.5 k/uL (1.0-4.8); Lymphocytes % (A) 28 %; MCH 23.2 pg (25.0-35.0); MCHC 31.9 g/dL (31.0-37.0); MCV 72.8 fL (80.0-100.0); Mean Platelet Volume 6.5; Microcytosis Marked; Monocytes # (A) 0.3 k/uL (0-1.0); Monocytes % (A) 6 %; Neutrophils # (A) 3.4 k/uL (1.3-7.7); Neutrophils % (A) 63 %; Platelet Count 266 k/uL (150-450); Poikilocytosis Moderate; RBC 5.03 m/uL (3.80-5.40); WBC 5.4 k/uL (3.8-10.6)
[2020-05-01 02:18] LABS: ALT 14 U/L (4-34); AST 22 U/L (14-36); African American GFR (CKD) >90 (>60 ml/min/1.73 sqM); Albumin 4.3 g/dL (3.5-5.0); Alkaline Phosphatase 77 U/L (38-126); Anion Gap 8 mmol/L; Blood Urea Nitrogen 14 mg/dL (7-17); C Reactive Protein <5.0 mg/L (<10.0); Calcium 8.9 mg/dL (8.4-10.2); Carbon Dioxide 27 mmol/L (22-30); Chloride 103 mmol/L (98-107); Glucose 89 mg/dL (74-99); LDH 471 U/L (313-618); Magnesium 1.7 mg/dL (1.6-2.3); Non-African American GFR(CKD) >90 (>60 ml/min/1.73 sqM); Potassium 3.6 mmol/L (3.5-5.1); Sodium 138 mmol/L (137-145); Total Bilirubin 0.4 mg/dL (0.2-1.3); Total Protein 7.5 g/dL (6.3-8.2)
--- NOTE | 2020-05-01 02:27 | XR ---
EXAM: XR Chest, 1 View CLINICAL HISTORY: ITS.REASON XR Reason: Suspected COVID-19 pneumonia TECHNIQUE: Frontal view of the chest. COMPARISON: May 28, 2019 FINDINGS: Lungs: Slightly better inflated lungs then previous with more prominent interstitial markings in the lung bases. This may be due to differences in technique versus mild interstitial pneumonitis. No lobar consolidation is seen. No pneumothorax or pleural effusion. Pleural space: See above. Heart: Unremarkable. No cardiomegaly. Mediastinum: Unremarkable. Bones/joints: Unremarkable. IMPRESSION: Slightly better inflated lungs then previous with more prominent interstitial markings in the lung bases. This may be due to differences in technique versus mild interstitial pneumonitis. No lobar consolidation is seen. No pneumothorax or pleural effusion.
[2020-05-01 02:36] LABS: Anisocytosis (M) Present; Hypochromasia (M) Present
[2020-05-01 02:37] LABS: Mixed Population RBC Present; Ovalocytes Present; RBC Fragments Present; Target Cells Present; Tear Drop Cells Present
[2020-05-01 03:20] VITALS: BP 135/82; PULSE 81; RESP 18; TEMP 98.1
== END 2020-05-01 03:45 | disposition home or self-care (01) ==
LOC: EC 01:16
DX: U07.1 COVID-19 (principal); R00.0 Tachycardia, unspecified; F17.200 Nicotine dependence, unspecified, uncomplicated; Z91.040 Latex allergy status
CPT/HCPCS: 36415; 71045; 80053; 83605; 83615; 83735; 85025; 86140; 87635; 93005; 96360; 99285

== ENCOUNTER → 2020-05-30 | Outpatient (CLI) | payer MEDICAID ==
--- NOTE | 2020-05-30 14:19 | XR ---
EXAMINATION TYPE: XR chest 2V DATE OF EXAM: 05/30/2020 COMPARISON: Chest x-ray 05/01/2020 HISTORY: Shortness of breath, cough and chest pain TECHNIQUE: Frontal and lateral views of the chest are obtained. FINDINGS: There is no focal air space opacity, pleural effusion, or pneumothorax seen. The cardiac silhouette size is within normal limits. The osseous structures are intact. IMPRESSION: No acute cardiopulmonary process.
== END ==
LOC: RADXRMAIN 12:25
PROVIDERS: ATTEND Family Medicine
DX: R05 Cough (principal); R07.9 Chest pain, unspecified
CPT/HCPCS: 71046

== ENCOUNTER → 2020-07-18 | Outpatient (CLI) | payer MEDICAID ==
--- NOTE | 2020-07-18 13:09 | CT ---
EXAMINATION TYPE: CT angio chest DATE OF EXAM: 07/18/2020 12:22 PM COMPARISON: Chest x-ray 8 days ago. HISTORY: Shortness of breath on exertion since Mar 2020. CT DLP: 457 mGycm Automated exposure control for dose reduction was used. CONTRAST: CTA scan of the thorax is performed with IV Contrast, patient injected with 100 mL of Isovue 370, pul monary embolism protocol. MIP images are created and reviewed. FINDINGS: LUNGS: Dependent atelectasis in the bilateral lower lobes. No suspicious focal consolidation. No conc erning pulmonary nodules or masses. No pleural effusion or pneumothorax seen bilaterally. MEDIASTINUM: There is near equal contrast the right and left heart systems. There is no thoracic aort ic aneurysm or dissection. There is no CT evidence for acute pulmonary embolism. There are no greate r than 1 cm hilar or mediastinal lymph nodes. Suspect physiologic pericardial recess fluid extending into the anterior superior mediastinum. No cardiomegaly or pericardial effusion is seen. Slightly asy mmetrically more prominent posterior inferior right thyroid lobe with substernal extension, no defini tive thyroid nodules. OTHER: No additional significant abnormality is seen. IMPRESSION: No CT evidence for acute pulmonary embolism. No suspicious acute pulmonary process.
--- NOTE | 2020-07-18 16:05 | ECHOF ---
Referral Reason:R06.09 Dyspnea MEASUREMENTS -------- HEIGHT: 162.6 cm WEIGHT: 85.7 kg BP: RVIDd: 2.6 cm (< 3.3) IVSd: 0.8 cm (0.6 - 1.1) LVIDd: 4.1 cm (3.9 - 5.3) LVPWd: 0.9 cm (0.6 - 1.1) IVSs: 1.3 cm LVIDs: 2.5 cm LVPWs: 1.6 cm LAESV Index (A-L): 14.93 ml/m Ao Diam: 3.3 cm (2.0 - 3.7) AV Cusp: 2.2 cm (1.5 - 2.6) LA Diam: 2.3 cm (2.7 - 3.8) MV EXCURSION: 20.824 mm (> 18.000) MV EF SLOPE: 146 mm/s (70 - 150) EPSS: 0.6 cm MV E Grover: 0.80 m/s MV DecT: 156 ms MV A Grover: 0.60 m/s MV E/A Ratio: 1.33 RAP: 5.00 mmHg RVSP: 22.54 mmHg FINDINGS -------- This was a technically good study. The left ventricular size is normal. Left ventricular wall thickness is normal. Overall left vent ricular systolic function is normal with, an EF between 55 - 60 %. The diastolic filling pattern is normal for the age of the patient 7.06. The right ventricle is normal in size. The left atrial size is normal. Normal LA size by volume 22+/-6 ml/m2. The right atrial size is normal. The aortic valve is trileaflet and appears structurally normal. The mitral valve is normal. There is trace mitral regurgitation. The tricuspid valve appears structurally normal. Trace tricuspid regurgitation present. Right damian tricular systolic pressure is normal at < 35 mmHg. There is no pulmonic regurgitation present. The aortic root size is normal. Normal inferior vena cava with normal inspiratory collapse consistent with estimated right atrial pre ssure of 5 mmHg. There is no pericardial effusion. CONCLUSIONS -------- 1. The left ventricular size is normal. 2. Left ventricular wall thickness is normal. 3. Overall left ventricular systolic function is normal with, an EF between 55 - 60 %. 4. The diastolic filling pattern is normal for the age of the patient 7.06 5. There is trace mitral regurgitation. 6. Trace tricuspid regurgitation present. 7. There is no pericardial effusion. [employer] WORKER: Daxa Perez RDCS
== END | disposition home or self-care (01) ==
LOC: RADECHMAIN 11:22
PROVIDERS: ATTEND Internal Medicine
DX: I08.1 Rheumatic disorders of both mitral and tricuspid valves (principal); R06.09 Other forms of dyspnea
CPT/HCPCS: 93306; 71275; Q9967

== ENCOUNTER 2020-09-28 20:41 | Emergency (ER) | payer MEDICAID ==
[2020-09-28] MEDS ORDERED: ACETAMINOPHEN TAB 500 MG TAB PO STA (20:51)
[2020-09-28] MEDS ORDERED: IBUPROFEN 600 MG TAB PO STA (20:51)
[2020-09-28] MEDS ORDERED: SODIUM CHLORIDE 0.9% 1,000 ML IV SCH (21:00)
[2020-09-28] MEDS: SODIUM CHLORIDE 0.9% 500 ML 500 ML IV SCH ×2 (21:12→22:51)
[2020-09-28 21:43] LABS: INR 1.1 (<1.2); Prothrombin Time 11.1 sec (9.0-12.0)
[2020-09-28 21:44] LABS: Albumin 4.2 g/dL (3.5-5.0); Anion Gap 13 mmol/L; Carbon Dioxide 21 mmol/L (22-30); Chloride 102 mmol/L (98-107); Glucose 110 mg/dL (74-99); Potassium 3.5 mmol/L (3.5-5.1); Sodium 136 mmol/L (137-145); Total Protein 7.1 g/dL (6.3-8.2)
[2020-09-28 21:45] LABS: ALT 9 U/L (4-34); AST 22 U/L (14-36); African American GFR (CKD) >90 (>60 ml/min/1.73 sqM); Alkaline Phosphatase 94 U/L (38-126); Blood Urea Nitrogen 9 mg/dL (7-17); Calcium 8.7 mg/dL (8.4-10.2); Creatine Kinase 86 U/L (30-135); Non-African American GFR(CKD) >90 (>60 ml/min/1.73 sqM); Total Bilirubin 0.7 mg/dL (0.2-1.3)
[2020-09-28 21:46] LABS: Anisocytosis Moderate; Basophils % (A) 0 %; Eosinophils % (A) 0 %; HCT 37.8 % (34.0-46.0); HGB 11.9 gm/dL (11.4-16.0); Hypochromasia Slight; Lymphocytes # (A) 1.4 k/uL (1.0-4.8); Lymphocytes % (A) 9 %; MCH 22.5 pg (25.0-35.0); MCHC 31.4 g/dL (31.0-37.0); MCV 71.9 fL (80.0-100.0); Mean Platelet Volume 7.1; Microcytosis Marked; Monocytes # (A) 0.8 k/uL (0-1.0); Monocytes % (A) 5 %; Neutrophils # (A) 12.4 k/uL (1.3-7.7); Neutrophils % (A) 84 %; Platelet Count 243 k/uL (150-450); Poikilocytosis Slight; RBC 5.26 m/uL (3.80-5.40); RDW 20.7 % (11.5-15.5); WBC 14.7 k/uL (3.8-10.6)
--- NOTE | 2020-09-28 22:08 | XR ---
EXAMINATION TYPE: XR chest 2V DATE OF EXAM: 09/28/2020 COMPARISON: 09/07/2020 and prior HISTORY: 34-year-old female with fever and chest pain TECHNIQUE: Frontal and lateral views of the chest are obtained. FINDINGS: There is a patchy opacity in the right lower lobe. There is no pneumothorax or pleural eff usion. The cardiomediastinal silhouette is within normal limit. No acute osseous abnormality. IMPRESSION: Patchy opacity right lower lobe concerning for developing pneumonia.
[2020-09-28 22:09] LABS: Anisocytosis (M) Present; Hypochromasia (M) Present; Ovalocytes Present; Tear Drop Cells Present
[2020-09-28 22:10] LABS: Mixed Population RBC Present; Stomatocytes Present
[2020-09-28 22:34] VITALS: TEMP 100.8
--- NOTE | 2020-09-28 22:56 | CT ---
EXAMINATION TYPE: CT chest angio for PE DATE OF EXAM: 09/28/2020 COMPARISON: 07/18/2020 HISTORY: R/O PE CT DLP: 300.60 mGycm Automated exposure control for dose reduction was used. CONTRAST: Performed with IV Contrast, patient injected with 65 mL of Isovue 370. There are 3-D post processed images. The lungs are clear of consolidation. There is no evidence of a pulmonary mass. There is minimal subs egmental atelectasis at the lung bases. Heart appears normal. There is no pericardial effusion. There is no mediastinal adenopathy. There are no hilar masses. There is no evidence of filling defect in the pulmonary arteries. Thoracic vertebra have normal spacing and alignment. There is no compression fracture. Sternum is int act. IMPRESSION: Mild subsegmental atelectasis at the lung bases. No evidence of pulmonary embolism.
--- NOTE | 2020-09-28 23:26 | ED ---
URI HPI - General Chief Complaint: Upper Respiratory Infection Stated Complaint: Fever, Body Aches Time Seen by Provider: 09/28/20 20:51 Source: patient Mode of arrival: ambulatory Limitations: no limitations - History of Present Illness Initial Comments: Yuridia is a 34-year-old female with a history of COVID in April of this year from which she is suffered from chronic shortness of breath, she is followed with pulmonology be worked up for reactive airway disease post COVID. Patient presents the ER today complaints of a couple days of fevers, chills, body aches runny nose, sore throat and nonproductive cough. Patient took some Mucinex with Tylenol in it this morning but otherwise is taken no antipyretics. She is not eating or drinking well. She reports pleuritic like chest pain. She denies any sick contacts. - Related Data Home Medications Medication Instructions Recorded Confirmed Naproxen Sodium [Aleve] 220 mg PO DAILY PRN 03/01/18 03/01/18 Previous Rx's Medication Instructions Recorded Ibuprofen 600 mg PO TID #20 tablet 03/01/18 methylPREDNISolone Dose Pack 4 mg PO DIRECTED #21 package 03/01/18 [Medrol Dose Pack] Ibuprofen 800 mg PO TID #20 tablet 05/03/18 Benzonatate [Tessalon Perles] 200 mg PO Q8H PRN #15 capsule 05/28/19 guaiFENesin [Mucinex] 600 mg PO Q12HR PRN #20 tablet.er 05/28/19 Lidocaine Viscous [Xylocaine 5 ml PO Q3HR PRN #100 ml 06/22/19 Viscous 2%] Allergies Allergy/AdvReac Type Severity Reaction Status Date / Time latex Allergy Rash/Hives Verified 09/28/20 20:42 Review of Systems ROS Statement: Those systems with pertinent positive or pertinent negative responses have been documented in the HPI. ROS Other: All systems not noted in ROS Statement are negative. Past Medical History Past Medical History: No Reported History Additional Past Medical History / Comment(s): arms broken, hypoglycemic, anemia leg fracture History of Any Multi-Drug Resistant Organisms: None Reported Past Surgical History: Orthopedic Surgery Additional Past Surgical History / Comment(s): arms, legs Past Psychological History: No Psychological Hx Reported Smoking Status: Light tobacco smoker Past Alcohol Use History: Occasional Past Drug Use History: None Reported General Exam - General Exam Comments Initial Comments: Physical Exam GENERAL: Patient is well-developed and well-nourished. Patient is nontoxic and well- hydrated and is in no distress. HENT: Normocephalic, Atraumatic. Posterior oropharynx is not erythematous there is postnasal drip noted EYES: PERRL, EOMI PULMONARY: Unlabored respirations. No audible rales rhonchi or wheezing was noted. CARDIOVASCULAR: Tachycardic, regular ABDOMEN: Soft and nontender with normal bowel sounds. SKIN: Skin is clear with no lesions or rashes and otherwise unremarkable. : Deferred NEUROLOGIC: Patient is alert and oriented x3. Moving all extremities spontaneously MUSCULOSKELETAL: Normal extremities with adequate strength and full range of motion. No lower extremity swelling or edema. No calf tenderness. PSYCHIATRIC: Normal psychiatric evaluation. Limitations: no limitations Course Vital Signs 09/28/20 09/28/20 20:42 22:33 Temperature 103 F H 100.8 F H Pulse Rate 140 H 98 Respiratory 16 18 Rate Blood Pressure 119/81 120/67 O2 Sat by Pulse 99 99 Oximetry Medical Decision Making - Medical Decision Making The patient was seen and evaluated, history is obtained from patient Patient was per family tachycardic on arrival upon my evaluation patient is febrile with a heart rate 120, septic workup was initiated Labs resulted with mild leukocytosis no other significant abnormalities were noted, she is negative for COVID at this time CT of the lungs revealed no obvious signs of pneumonia and no evidence of pulmonary embolism Patient received antipyretics and IV fluids, fever improved to 100.8, tachycardia resolved, on reevaluation patient was feeling slightly better, heart rate was in the 80s blood pressure was stable at this time she is stable for discharge home comfortable with plan for supportive care - Lab Data Result diagrams: 09/28/20 21:00 09/28/20 21:00 Lab Results 09/28/20 09/28/20 09/28/20 Range/Units 21:00 21:00 21:00 WBC 14.7 H (3.8-10.6) k/uL RBC 5.26 (3.80-5.40) m/uL Hgb 11.9 (11.4-16.0) gm/dL Hct 37.8 (34.0-46.0) % MCV 71.9 L (80.0-100.0) fL MCH 22.5 L (25.0-35.0) pg MCHC 31.4 (31.0-37.0) g/dL RDW 20.7 H (11.5-15.5) % Plt Count 243 (150-450) k/uL MPV 7.1 Neutrophils % 84 % Lymphocytes % 9 % Monocytes % 5 % Eosinophils % 0 % Basophils % 0 % Neutrophils # 12.4 H (1.3-7.7) k/uL Lymphocytes # 1.4 (1.0-4.8) k/uL Monocytes # 0.8 (0-1.0) k/uL Eosinophils # 0.0 (0-0.7) k/uL Basophils # 0.0 (0-0.2) k/uL Differential Comment Dimorphic RBCs Present Hypochromasia Slight Hypochromasia (manual) Present Poikilocytosis Slight Anisocytosis Moderate Anisocytosis (manual) Present Microcytosis Marked Tear Drop Cells Present Ovalocytes Present Stomatocytes Present PT 11.1 (9.0-12.0) sec INR 1.1 (<1.2) APTT 23.0 (22.0-30.0) sec Sodium 136 L (137-145) mmol/L Potassium 3.5 (3.5-5.1) mmol/L Chloride 102 (98-107) mmol/L Carbon Dioxide 21 L (22-30) mmol/L Anion Gap 13 mmol/L BUN 9 (7-17) mg/dL Creatinine 0.71 (0.52-1.04) mg/dL Est GFR (CKD-EPI)AfAm >90 (>60 ml/min/1.73 sqM) Est GFR (CKD-EPI)NonAf >90 (>60 ml/min/1.73 sqM) Glucose 110 H (74-99) mg/dL Plasma Lactic Acid Joshua (0.7-2.0) mmol/L Calcium 8.7 (8.4-10.2) mg/dL Total Bilirubin 0.7 (0.2-1.3) mg/dL AST 22 (14-36) U/L ALT 9 (4-34) U/L Alkaline Phosphatase 94 (38-126) U/L Creatine Kinase 86 (30-135) U/L Troponin I (0.000-0.034) ng/mL Total Protein 7.1 (6.3-8.2) g/dL Albumin 4.2 (3.5-5.0) g/dL Coronavirus (PCR) (Not Detectd) 09/28/20 09/28/20 09/28/20 Range/Units 21:00 21:00 21:00 WBC (3.8-10.6) k/uL RBC (3.80-5.40) m/uL Hgb (11.4-16.0) gm/dL Hct (34.0-46.0) % MCV (80.0-100.0) fL MCH (25.0-35.0) pg MCHC (31.0-37.0) g/dL RDW (11.5-15.5) % Plt Count (150-450) k/uL MPV Neutrophils % % Lymphocytes % % Monocytes % % Eosinophils % % Basophils % % Neutrophils # (1.3-7.7) k/uL Lymphocytes # (1.0-4.8) k/uL Monocytes # (0-1.0) k/uL Eosinophils # (0-0.7) k/uL Basophils # (0-0.2) k/uL Differential Comment Dimorphic RBCs Hypochromasia Hypochromasia (manual) Poikilocytosis Anisocytosis Anisocytosis (manual) Microcytosis Tear Drop Cells Ovalocytes Stomatocytes PT (9.0-12.0) sec INR (<1.2) APTT (22.0-30.0) sec Sodium (137-145) mmol/L Potassium (3.5-5.1) mmol/L Chloride (98-107) mmol/L Carbon Dioxide (22-30) mmol/L Anion Gap mmol/L BUN (7-17) mg/dL Creatinine (0.52-1.04) mg/dL Est GFR (CKD-EPI)AfAm (>60 ml/min/1.73 sqM) Est GFR (CKD-EPI)NonAf (>60 ml/min/1.73 sqM) Glucose (74-99) mg/dL Plasma Lactic Acid Joshua 1.1 (0.7-2.0) mmol/L Calcium (8.4-10.2) mg/dL Total Bilirubin (0.2-1.3) mg/dL AST (14-36) U/L ALT (4-34) U/L Alkaline Phosphatase (38-126) U/L Creatine Kinase (30-135) U/L Troponin I <0.012 (0.000-0.034) ng/mL Total Protein (6.3-8.2) g/dL Albumin (3.5-5.0) g/dL Coronavirus (PCR) Not Detected (Not Detectd) Disposition Clinical Impression: Acute upper respiratory infection Disposition: HOME SELF-CARE Condition: Stable Instructions (If sedation given, give patient instructions): Upper Respiratory Infection (ED) Is patient prescribed a controlled substance at d/c from ED?: No Referrals: None,Stated [Primary Care Provider] - 1-2 days
[2020-09-28 23:40] VITALS: BP 122/69; PULSE 83; RESP 16
== END 2020-09-28 23:49 | disposition home or self-care (01) ==
LOC: EC 20:41
DX: J06.9 Acute upper respiratory infection, unspecified (principal); D72.829 Elevated white blood cell count, unspecified; F17.200 Nicotine dependence, unspecified, uncomplicated; Z20.822 Contact with and (suspected) exposure to COVID-19; Z86.16 Personal history of COVID-19
CPT/HCPCS: 99285; 96360; 96361; 93005; 80053; 82550; 83605; 84484; 85025; 85610; 85730; 87040; 87635; 71046; 71275; Q9967

== ENCOUNTER 2021-09-11 01:04 | Emergency (ER) | payer MEDICAID ==
[2021-09-11 01:26] VITALS: BP 142/85; PULSE 89; RESP 18; TEMP 98.7
[2021-09-11] MEDS ORDERED: ENOXAPARIN 80 MG/0.8 ML SYRINGE SQ STA (03:02)
--- NOTE | 2021-09-11 03:03 | ED ---
Extremity Problem HPI - General Chief complaint: Extremity Problem,Nontraumatic Stated complaint: rt leg pain Time Seen by Provider: 09/11/21 02:25 Source: patient, RN notes reviewed, old records reviewed Mode of arrival: ambulatory Limitations: no limitations - History of Present Illness Initial comments: This is a 35-year-old female DF for evaluation of right leg pain. Patient does work nostrils is concern for DVT of the right leg. She is a few days in the course of the pain without a going away she became more concerned no significant swelling no travel history no trauma. Patient is without fever or other complaint MD Complaint: extremity pain -: days(s) Location: right, lower extremity History of Same: Yes -: Yes myalgia Radiation: none Severity scale (1-10): 4 Quality: aching Consistency: constant, intermittent Worsens with: nothing Associated Symptoms: denies other symptoms - Related Data Home Medications Medication Instructions Recorded Confirmed Naproxen Sodium [Aleve] 220 mg PO DAILY PRN 03/01/18 03/01/18 Previous Rx's Medication Instructions Recorded Ibuprofen 600 mg PO TID #20 tablet 03/01/18 methylPREDNISolone Dose Pack 4 mg PO DIRECTED #21 package 03/01/18 [Medrol Dose Pack] Ibuprofen 800 mg PO TID #20 tablet 05/03/18 Benzonatate [Tessalon Perles] 200 mg PO Q8H PRN #15 capsule 05/28/19 guaiFENesin [Mucinex] 600 mg PO Q12HR PRN #20 tablet.er 05/28/19 Lidocaine Viscous [Xylocaine 5 ml PO Q3HR PRN #100 ml 06/22/19 Viscous 2%] Allergies Allergy/AdvReac Type Severity Reaction Status Date / Time latex Allergy Rash/Hives Verified 09/11/21 01:26 Review of Systems ROS Statement: Those systems with pertinent positive or pertinent negative responses have been documented in the HPI. ROS Other: All systems not noted in ROS Statement are negative. Past Medical History Past Medical History: No Reported History Additional Past Medical History / Comment(s): arms broken, hypoglycemic, anemia leg fracture History of Any Multi-Drug Resistant Organisms: None Reported Past Surgical History: Orthopedic Surgery Additional Past Surgical History / Comment(s): arms, legs Past Psychological History: No Psychological Hx Reported Smoking Status: Light tobacco smoker Past Alcohol Use History: Occasional Past Drug Use History: None Reported General Exam Limitations: no limitations General appearance: alert, in no apparent distress Head exam: Present: atraumatic, normocephalic, normal inspection Eye exam: Present: normal appearance, PERRL, EOMI. Absent: scleral icterus, conjunctival injection, periorbital swelling ENT exam: Present: normal exam, mucous membranes moist Neck exam: Present: normal inspection. Absent: tenderness, meningismus, lympha denopathy Respiratory exam: Present: normal lung sounds bilaterally. Absent: respiratory distress, wheezes, rales, rhonchi, stridor Cardiovascular Exam: Present: regular rate, normal rhythm, normal heart sounds. Absent: systolic murmur, diastolic murmur, rubs, gallop, clicks GI/Abdominal exam: Present: soft, normal bowel sounds. Absent: distended, tenderness, guarding, rebound, rigid Extremities exam: Present: tenderness, normal capillary refill. Absent: pedal edema, joint swelling, calf tenderness Back exam: Present: normal inspection Neurological exam: Present: alert, oriented X3, CN II-XII intact Psychiatric exam: Present: normal affect, normal mood Skin exam: Present: warm, dry, intact, normal color. Absent: rash Course Vital Signs 09/11/21 01:23 Temperature 98.7 F Pulse Rate 89 Respiratory 18 Rate Blood Pressure 142/85 O2 Sat by Pulse 100 Oximetry - Reevaluation(s) Reevaluation #1: 09/11/21 Medical record is reviewed Reevaluation #2: 09/11/21 Patient informed that there is normal HERE IN THE ER SHE WILL FOLLOW-UP FOR OUTPATIENT ULTRASOUND FOR FURTHER EVALUATION OF DVT Medical Decision Making - Medical Decision Making 35 female to the emergency department for evaluation. Right leg pain rule out DVT. Unable to do that here at this time she will do an outpatient ultrasound for further evaluation Disposition Clinical Impression: Right leg pain Disposition: HOME SELF-CARE Condition: Undetermined Instructions (If sedation given, give patient instructions): Deep Vein Thrombosis (ED), Leg Pain (ED) Is patient prescribed a controlled substance at d/c from ED?: No Referrals: None,Stated [Primary Care Provider] - 1-2 days Time of Disposition: 03:00
== END 2021-09-11 03:17 | disposition home or self-care (01) ==
LOC: EC 01:04
DX: M79.604 Pain in right leg (principal); F17.200 Nicotine dependence, unspecified, uncomplicated; Z91.040 Latex allergy status
CPT/HCPCS: 99283; J1650

== ENCOUNTER → 2021-09-11 | Outpatient (CLI) | payer MEDICAID ==
--- NOTE | 2021-09-11 13:54 | US ---
EXAMINATION TYPE: US venous doppler duplex LE RT DATE OF EXAM: 09/11/2021 1:29 PM COMPARISON: NONE CLINICAL HISTORY: RIGHT LEG PAIN M79.604. Right leg cramps SIDE PERFORMED: Right TECHNIQUE: The lower extremity deep venous system is examined utilizing real time linear array sonog germain with graded compression, doppler sonography and color-flow sonography. VESSELS IMAGED: Common Femoral Vein Deep Femoral Vein Greater Saphenous Vein * Femoral Vein Popliteal Vein Small Saphenous Vein * Proximal Calf Veins (* superficial vessels) Right Leg: Appears negative for DVT Grayscale, color doppler, spectral doppler imaging performed of the deep veins of the right lower ext remity. There is normal flow, compressibility, vascular waveforms. IMPRESSION: No ultrasound evidence for acute DVT in the right lower extremity.
== END | disposition home or self-care (01) ==
LOC: RADUSWWP 13:09
PROVIDERS: ATTEND Emergency Medicine
DX: M79.604 Pain in right leg (principal)

== ENCOUNTER → 2022-01-10 | Outpatient (CLI) | payer MEDICAID ==
--- NOTE | 2022-01-11 16:04 | US ---
EXAMINATION TYPE: US pelvic complete DATE OF EXAM: 01/10/2022 COMPARISON: NONE CLINICAL HISTORY: OVARIAN CYST N83.209. TECHNIQUE: Transabdominal (TA). Date of LMP: 12/31/21 EXAM MEASUREMENTS: Uterus: 10.0 x 3.5 x 5.8 cm Endometrial Stripe: 0.4 cm Right Ovary: 3.1 x 1.6 x 1.9 cm Left Ovary: 3.2 x 2.0 x 2.3 cm 1. Uterus: Two fibroids noted 1.)0.9 x 0.7 x 0.8cm, 2.) 1.6 x 1.4 x 2.2cm 2. Endometrium: wnl 3. Right Ovary: wnl 4. Left Ovary: wnl 5. Bilateral Adnexa: wnl 6. Posterior cul-de-sac: wnl IMPRESSION: Fibroid uterus
== END | disposition home or self-care (01) ==
LOC: RADUSWWP 16:27
PROVIDERS: ATTEND Orthopaedic Surgery
DX: M70.61 Trochanteric bursitis, right hip (principal); M21.70 Unequal limb length (acquired), unspecified site; F17.200 Nicotine dependence, unspecified, uncomplicated; N83.209 Unspecified ovarian cyst, unspecified side; D25.9 Leiomyoma of uterus, unspecified
CPT/HCPCS: 76856

== ENCOUNTER 2023-06-11 16:28 | Emergency (ER) | payer MEDICAID ==
--- NOTE | 2023-06-11 17:01 | ED ---
Chest Pain HPI - General Source: patient, RN notes reviewed Mode of arrival: ambulatory Limitations: no limitations <Trista Waller - Last Filed: 06/11/23 17:00> <Yordan Marc - Last Filed: 06/11/23 20:38> - General Stated Complaint: Back Pain Time Seen by Provider: 06/11/23 17:00 - History of Present Illness Initial Comments: Quick note: Patient is a 37-year-old female presented to ER with a chief complaint of chest discomfort and mid back pain. She states this has been going on for months and yesterday it increased. She does endorse mild shortness of breath. She also is reporting left flank pain. 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 She does not plan of any excessive activity any recent heavy lifting bending stretching and reaching. No fevers chills sweats no cough or phlegm production no dysuria no hematuria (Yordan Marc) - Related Data Home Medications Medication Instructions Recorded Confirmed Naproxen Sodium [Aleve] 220 mg PO DAILY PRN 03/01/18 03/01/18 Previous Rx's Medication Instructions Recorded Ibuprofen 600 mg PO TID #20 tablet 03/01/18 methylPREDNISolone Dose Pack 4 mg PO DIRECTED #21 package 03/01/18 [Medrol Dose Pack] Ibuprofen 800 mg PO TID #20 tablet 05/03/18 Benzonatate [Tessalon Perles] 200 mg PO Q8H PRN #15 capsule 05/28/19 guaiFENesin [Mucinex] 600 mg PO Q12HR PRN #20 tablet.er 05/28/19 Lidocaine Viscous [Xylocaine 5 ml PO Q3HR PRN #100 ml 06/22/19 Viscous 2%] Allergies Allergy/AdvReac Type Severity Reaction Status Date / Time latex Allergy Rash/Hives Verified 06/11/23 17:01 Review of Systems ROS Other: All systems not noted in ROS Statement are negative. <Trista Waller - Last Filed: 06/11/23 17:00> ROS Other: All systems not noted in ROS Statement are negative. <Yordan Marc - Last Filed: 06/11/23 20:38> ROS Statement: Those systems with pertinent positive or pertinent negative responses have been documented in the HPI. Past Medical History Past Medical History: No Reported History Additional Past Medical History / Comment(s): arms broken, hypoglycemic, anemia leg fracture History of Any Multi-Drug Resistant Organisms: None Reported Past Surgical History: Orthopedic Surgery Additional Past Surgical History / Comment(s): arms, legs Past Psychological History: No Psychological Hx Reported Smoking Status: Light tobacco smoker Past Alcohol Use History: Occasional Past Drug Use History: None Reported <TravelisaTrista - Last Filed: 06/11/23 17:00> General Exam <TravKarla péreznn - Last Filed: 06/11/23 17:00> General appearance: alert, in no apparent distress Head exam: Present: atraumatic, normocephalic, normal inspection Eye exam: Present: normal appearance, PERRL, EOMI. Absent: scleral icterus, conjunctival injection, periorbital swelling ENT exam: Present: normal exam, mucous membranes moist Neck exam: Present: normal inspection, full ROM, other (No stridor JVD or bruits). Absent: tenderness, meningismus, lymphadenopathy Respiratory exam: Present: normal lung sounds bilaterally. Absent: respiratory distress, wheezes, rales, rhonchi, stridor Cardiovascular Exam: Present: regular rate, normal rhythm, normal heart sounds. Absent: systolic murmur, diastolic murmur, rubs, gallop, clicks GI/Abdominal exam: Present: soft, normal bowel sounds. Absent: distended, tenderness, guarding, rebound, rigid, bruit, pulsatile mass Extremities exam: Present: normal inspection, full ROM, normal capillary refill. Absent: tenderness, pedal edema, joint swelling, calf tenderness Back exam: Present: normal inspection Neurological exam: Present: alert, oriented X3, CN II-XII intact Psychiatric exam: Present: normal affect, normal mood Skin exam: Present: warm, dry, intact, normal color. Absent: rash <MonicoYordan - Last Filed: 06/11/23 20:38> - General Exam Comments Initial Comments: Visual Physical Exam Vital signs reviewed General: Well-appearing, nontoxic, no acute distress. Head: Normocephalic, atraumatic Eyes: PERRLA, EOMI ENT: Airway patent Chest: Nonlabored breathing Skin: No visual rash, normal skin tone Neuro: Alert and oriented 3 Musculoskeletal: No gross abnormalities (Trista Waller) This is a well-developed well-nourished awake alert oriented x 4 female (MonicoYordan) Course Vital Signs 06/11/23 06/11/23 16:57 19:21 Temperature 98.4 F Pulse Rate 92 77 Respiratory 18 18 Rate Blood Pressure 151/88 115/81 O2 Sat by Pulse 100 99 Oximetry Chest Pain MDM <Trista Waller - Last Filed: 06/11/23 17:00> <Yordan Marc - Last Filed: 06/11/23 20:38> - [facility] I performed the quick note portion of this chart. Electronically signed by Trista Waller PA-C (Trista Waller) I did review the above information I did interpret the chest x-ray which was negative for acute process I did also interpret the EKG which was a normal sinus rhythm at 79 with no acute processes. Patient will be discharged with follow-up with her doctor I did recommend increasing fluids and ibuprofen or acetaminophen for pain. The presentation appears to be consistent with myofascial pain. Was pt. sent in by a medical professional or institution (YONI Hernandez, [employer], urgent care, hospital, or long-term...) When possible be specific @ -No Did you speak to anyone other than the patient for history (EMS, parent, family, police, friend...)? What history was obtained from this source @ -No Did you review nursing and triage notes (agree or disagree)? Why? @ -I reviewed and agree with nursing and triage notes Were old charts reviewed (outside hosp., previous admission, EMS record, old EKG, old radiological studies, urgent care reports/EKG's, long-term records)? Report findings @ -Old charts were reviewed Differential Diagnosis (chest pain, altered mental status, abdominal pain women, abdominal pain men, vaginal bleeding, weakness, fever, dyspnea, syncope, headache, dizziness, GI bleed, back pain, seizure, CVA, palpatations, mental health, musculoskeletal)? @ -Not applicable EKG interpreted by me (3pts min.). @ -As above EKG interpreted by me normal sinus rhythm at 79 parable 172 QRS duration 86 QT/QTc 351/[address]-T wave changes X-rays interpreted by me (1pt min.). @ -Chest x-ray interpreted by me no evidence of acute processes CT interpreted by me (1pt min.). @ -None done U/S interpreted by me (1pt. min.). @ -None done What testing was considered but not performed or refused? (CT, X-rays, U/S, labs)? Why? @ -None What meds were considered but not given or refused? Why? @ -None Did you discuss the management of the patient with other professionals (professionals i.e. DrSheila, PA, [employer], lab, RT, psych nurse, social media job titles, waiter/waitress cabin class, teacher, facilities officer, foster care case manager)? Give summary @ -No Was smoking cessation discussed for >3mins.? @ -No Was critical care preformed (if so, how long)? @ -No Were there social determinants of health that impacted care today? How? (Homelessness, low income, unemployed, alcoholism, drug addiction, transportation, low edu. Level, literacy, decrease access to med. care, senior living, rehab)? @ -No Was there de-escalation of care discussed even if they declined (Discuss DNR or withdrawal of care, Hospice)? DNR status @ -No What co-morbidities impacted this encounter? (DM, HTN, Smoking, COPD, CAD, Cancer, CVA, ARF, Chemo, Hep., AIDS, mental health diagnosis, sleep apnea, morbid obesity)? @ -None Was patient admitted / discharged? Hospital course, mention meds given and route, prescriptions, significant lab abnormalities, going to OR and other pertinent info. @ -Hospital course patient was discharged home with instructions for increasing her fluids and ibuprofen or acetaminophen for pain and follow-up with her doctor Undiagnosed new problem with uncertain prognosis? @ -No Drug Therapy requiring intensive monitoring for toxicity (Heparin, Nitro, Insulin, Cardizem)? @ -No Were any procedures done? @ -No Diagnosis/symptom? @ -Myofascial pain Acute, or Chronic, or Acute on Chronic? @ -Acute Uncomplicated (without systemic symptoms) or Complicated (systemic symptoms)? @ -Default Side effects of treatment? @ -No Exacerbation, Progression, or Severe Exacerbation? @ -No Poses a threat to life or bodily function? How? (Chest pain, USA, PA, pneumonia, PE, COPD, DKA, ARF, appy, cholecystitis, CVA, Diverticulitis, Homicidal, Suicidal, threat to staff... and all critical care pts) @ -No (Yordan Marc) Disposition <Trista Waller - Last Filed: 06/11/23 17:00> Is patient prescribed a controlled substance at d/c from ED?: No Decision Date: 06/11/23 Decision Time: 20:38 <Yordan Marc - Last Filed: 06/11/23 20:38> Clinical Impression: Myofascial pain Disposition: HOME SELF-CARE Condition: Good Instructions (If sedation given, give patient instructions): Musculoskeletal Pain (ED) Additional Instructions: Increase fluids also acetaminophen or ibuprofen for pain, follow-up with your doctor Referrals: None,Stated [Primary Care Provider] - 1-2 days
[2023-06-11 17:29] VITALS: RESP 18; TEMP 98.4
[2023-06-11 17:38] LABS: Anisocytosis Moderate; Basophils % (A) 0 %; Eosinophils # (A) 0.1 k/uL (0-0.7); Eosinophils % (A) 1 %; HCT 34.8 % (34.0-46.0); HGB 11.1 gm/dL (11.4-16.0); Hypochromasia Slight; Lymphocytes # (A) 2.1 k/uL (1.0-4.8); Lymphocytes % (A) 36 %; MCH 23.3 pg (25.0-35.0); MCHC 31.9 g/dL (31.0-37.0); Microcytosis Marked; Monocytes # (A) 0.4 k/uL (0-1.0); Monocytes % (A) 7 %; Neutrophils % (A) 52 %; Platelet Count 280 k/uL (150-450); Poikilocytosis Slight; RBC 4.77 m/uL (3.80-5.40); RDW 21.9 % (11.5-15.5); WBC 5.8 k/uL (3.8-10.6)
[2023-06-11 17:54] LABS: Large Platelets Present; Polychromasia Present; Tear Drop Cells Present
[2023-06-11 17:55] LABS: Target Cells Present
[2023-06-11 17:56] LABS: Ovalocytes Present
[2023-06-11 18:04] LABS: INR 0.9 (<1.2); Partial Thromboplastin Time 23.6 sec (22.0-30.0); Prothrombin Time 9.8 sec (10.0-12.5)
[2023-06-11 18:15] LABS: ALT 12 U/L (4-34); AST 21 U/L (14-36); African American GFR (CKD) >90 (>60 ml/min/1.73 sqM); Albumin 3.8 g/dL (3.5-5.0); Alkaline Phosphatase 86 U/L (38-126); Anion Gap 7 mmol/L; Blood Urea Nitrogen 12 mg/dL (7-17); Calcium 8.7 mg/dL (8.4-10.2); Carbon Dioxide 26 mmol/L (22-30); Chloride 105 mmol/L (98-107); Glucose 80 mg/dL (74-99); Magnesium 1.9 mg/dL (1.6-2.3); Non-African American GFR(CKD) >90 (>60 ml/min/1.73 sqM); Potassium 3.7 mmol/L (3.5-5.1); Sodium 138 mmol/L (137-145); Total Bilirubin 0.3 mg/dL (0.2-1.3); Total Protein 6.8 g/dL (6.3-8.2)
--- NOTE | 2023-06-11 19:28 | XR ---
EXAMINATION TYPE: XR chest 2V DATE OF EXAM: 06/11/2023 COMPARISON: 10/17/2020 HISTORY: 37-year-old female with chest pain into back and left side TECHNIQUE: PA and lateral views FINDINGS: The cardiomediastinal silhouette, aorta, and pulmonary vasculature are within normal limits. Lungs an d pleural spaces are clear. IMPRESSION: No acute cardiopulmonary process.
[2023-06-11 19:33] VITALS: BP 115/81; PULSE 77
[2023-06-11 19:45] LABS: Appearance,Urine Clear (Clear); Bilirubin,Urine Negative (Negative); Blood,Urine Negative (Negative); Color,Urine Light Yellow; Glucose,Urine (UA) Negative (Negative); Ketones,Urine Negative (Negative); Leukocyte Esterase,Urine Negative (Negative); Nitrite,Urine Negative (Negative); PH, Urine 6.5 (5.0-8.0); Protein,Urine Negative (Negative); Specific Gravity,Urine 1.023 (1.001-1.035)
== END 2023-06-11 20:49 | disposition home or self-care (01) ==
LOC: EC 16:28
DX: M79.18 Myalgia, other site (principal)
CPT/HCPCS: 36415; 71046; 80053; 81003; 83735; 84484; 85025; 85379; 85610; 85730; 93005; 99284